=== PATIENT | female | born 1965 | race American Indian/Alaskan Native ===

== ENCOUNTER 2020-07-22 21:27 | Emergency (ER) | payer SELFPAY | END 2020-07-23 00:06 | disposition left against medical advice (07) | LOC: ED 21:27 | DX: Z00.8 Encounter for other general examination (principal); Z53.21 Procedure and treatment not carried out due to patient leaving prior to being seen by health care provider ==

== ENCOUNTER 2021-01-19 03:26 | Inpatient (IN) | payer OTHER, SELFPAY ==
[2021-01-19] MEDS ORDERED: MORPHINE 2 MG/1 ML INJ ONE (03:32)
[2021-01-19] MEDS ORDERED: HEPARIN 1,000 UNIT/1 ML VIAL IV ONE (03:34)
[2021-01-19] MEDS ORDERED: CLOPIDOGREL 300 MG TAB PO ONE (03:34)
--- NOTE | 2021-01-19 03:34 | Emergency Department Report ---
ED Chest Pain HPI - General Chief Complaint: Chest Pain Stated Complaint: POSS STEMI PUI?: No Time Seen by Provider: 01/19/21 03:29 Source: patient, EMS Mode of arrival: Stretcher Limitations: No Limitations - History of Present Illness Initial Comments: Patient is a 55-year-old female who presents emergency room with complaints of chest pain. Patient is chest pain started 2 days ago. Patient states became extreme this evening. Patient states approximately 30 minutes prior to arrival she developed severe chest pain, diaphoresis, nausea and vomiting and shortness of breath. Patient states the chest pain is better with rest and worse with exertion. Patient denies fever and chills. Patient denies recent travel. Patient denies recent international travel. Patient denies exposure to the novel coronavirus. Patient denies sick contacts. Patient denies fever and chills. Patient denies cough. Patient denies diarr hea. Patient denies coming in contact with anybody with symptoms of the novel coronavirus. Patient brought in by EMS. EMS initiated code STEMI prior to arrival. Patient was given aspirin and nitro by EMS. Patient is also on 4 L of oxygen. EKG was transmitted to us. Report received from EMS prior to arrival at 0 315. Code STEMI team activated immediately as reviewed in the transmitted EKG by EMS.. Complaint: chest pain - Related Data Allergies Allergy/AdvReac Type Severity Reaction Status Date / Time No Known Allergies Allergy Unverified 01/19/21 03:33 Heart Score - HEART Score History: Highly suspicious EKG: Significant ST-depression Age: 45-65 Risk factors: No known risk factors Troponin: < normal limit HEART Score: 5 - EKG Read Time Time EKG Completed: 03:28 EKG Read Time: 03:29 ED Review of Systems ROS: Stated complaint: POSS STEMI Other details as noted in HPI Constitutional: diaphoresis. denies: chills, fever Eyes: denies: eye pain, eye discharge, vision change ENT: denies: ear pain, throat pain Respiratory: shortness of breath. denies: cough, wheezing Cardiovascular: as per HPI, chest pain. denies: palpitations Endocrine: no symptoms reported Gastrointestinal: nausea, vomiting. denies: abdominal pain, diarrhea Genitourinary: denies: urgency, dysuria, discharge Musculoskeletal: denies: back pain, joint swelling, arthralgia Skin: denies: rash, lesions Neurological: denies: headache, weakness, paresthesias Psychiatric: denies: anxiety, depression Hematological/Lymphatic: denies: easy bleeding, easy bruising ED Past Medical Hx - Past Medical History Previous Medical History?: Yes Hx Hypertension: Yes - Surgical History Past Surgical History?: No - Family History Family history: no significant - Social History Smoking Status: Never Smoker Substance Use Type: None ED Physical Exam - General Limitations: No Limitations General appearance: alert, in no apparent distress - Head Head exam: Present: atraumatic, normocephalic - Eye Eye exam: Present: normal appearance - ENT ENT exam: Present: mucous membranes moist - Neck Neck exam: Present: normal inspection - Respiratory Respiratory exam: Present: normal lung sounds bilaterally. Absent: respiratory distress - Cardiovascular Cardiovascular Exam: Present: regular rate, normal rhythm. Absent: systolic murmur, diastolic murmur, rubs, gallop - GI/Abdominal GI/Abdominal exam: Present: soft, normal bowel sounds - Extremities Exam Extremities exam: Present: normal inspection - Back Exam Back exam: Present: normal inspection - Neurological Exam Neurological exam: Present: alert, oriented X3 - Psychiatric Psychiatric exam: Present: normal affect, normal mood - Skin Skin exam: Present: warm, dry, intact, normal color. Absent: rash ED Course Vital Signs 01/19/21 01/19/21 03:29 04:15 Temperature 97.8 F 98 F Pulse Rate 84 86 Respiratory 18 18 Rate Blood Pressure 136/97 134/80 [Left] O2 Sat by Pulse 100 98 Oximetry - Reevaluation(s) Reevaluation #1: Patient states her pain is better. Patient's nausea has resolved. 01/19/21 03:35 Reevaluation #2: Patient being transported to the [facility]. [employer] Work at bedside. 01/19/21 03:59 - Consultations Consultation #1: Dr. Edwards consulted and agrees that this is a STEMI 01/19/21 03:18 Consultation #2: Hospitalist consulted for admission. Hospitalist to admit patient. 01/19/21 04:00 PIEDAD score - Peidad Score Age > 65: (0) No Aspirin use within the Past 7 Days: (0) No 3 or more CAD Risk Factors: (0) No 2 or more Angina events in past 24 hrs: (0) No Known CAD with more than 50% Stenosis: (0) No Elevated Cardiac Markers: (0) No ST Deviation Greater than 0.5mm: (0) No PIEDAD Score: 0 ED Medical Decision Making - Lab Data Result diagrams: 01/19/21 03:40 01/19/21 03:40 - EKG Data -: EKG Interpreted by Me EKG shows normal: sinus rhythm, axis, intervals, QRS complexes Rate: normal - EKG Data Interpretation: acute GA - Radiology Data Radiology results: image reviewed interpreted by me: Chest x-ray: No pneumonia, no pneumothorax, no foreign body, no osseous findings, no acute findings - Medical Decision Making Patient is a 55-year-old female presents emergency room for chest pain, shortness of breath and diaphoresis. Patient was brought in by EMS and a code STEMI was initiated prior to arrival immediately after EKG was received from EMS. EMS EKG showed a STEMI. EMS gave the patient aspirin. Patient is on 4 L of oxygen by EMS. Cardiology consulted immediately as well. Patient was given a heparin bolus and placed on a heparin drip, Plavix, oxygen therapy, nitro, morphine and Zofran. Patient began to vomit shortly after receiving the Plavix. Patient was then given Zofran 8 mg. Patient given 2 mg of morphine and then the patient was given nitro and another 2 mg of morphine to control pain. Kim goveant was transported to the [facility] with the manager clinical for his evaluation and treatment by them. The labs came back shortly after and the labs show hypokalemia and elevated troponin and hyperlipidemia. Patient admitted to the hospital service for further evaluation treatment. Patient was admitted to the ICU. Critical care time documented due to the multiple reassessments, prolonged time at the bedside, interpretation of diagnostics and labs And discussion with consultants,. - Differential Diagnosis STEMI, chest pain, shortness of breath, diaphoresis Critical Care Time: Yes Critical care time in (mins) excluding proc time.: 35 Critical care attestation.: If time is entered above; I have spent that time in minutes in the direct care of this critically ill patient, excluding procedure time. Critical Care Time: 35 minutes ED Disposition Clinical Impression: Shortness of breath, Elevated troponin I level, Hypokalemia STEMI (ST elevation myocardial infarction) Qualifiers: Involved coronary artery: unspecified coronary artery Qualified Code(s): I21.3 - ST elevation (STEMI) myocardial infarction of unspecified site Chest pain Qualifiers: Chest pain type: unspecified Qualified Code(s): R07.9 - Chest pain, unspecified Disposition: 09 OP ADMIT IP TO THIS HOSP Is pt being admited?: Yes Does the pt Need Aspirin: No Condition: Critical Time of Disposition: 04:00
[2021-01-19] MEDS ORDERED: ONDANSETRON 4 MG/2 ML INJ IV ONE (03:35)
[2021-01-19] MEDS ORDERED: MORPHINE 2 MG/1 ML INJ IV ONE (03:36)
[2021-01-19] MEDS ORDERED: MIDAZOLAM 2 MG/2 ML INJ ONE (03:57)
[2021-01-19] MEDS ORDERED: HEPARIN 10,000 UNITS/10 ML VIAL ONE ×2 (03:57→09:12)
[2021-01-19] MEDS ORDERED: HEPARIN/NS 5000 UNIT/500ML 1,000 ML IR ONE (03:57)
[2021-01-19] MEDS ORDERED: fentaNYL 100 MCG/2 ML INJ ONE (03:58)
[2021-01-19] MEDS ORDERED: VERAPAMIL 5 MG/2 ML INJ ONE (03:58)
[2021-01-19] MEDS ORDERED: SODIUM CHLORIDE 0.9% 1000 ML 1,000 ML ONE (03:58)
[2021-01-19] MEDS ORDERED: NITROGLYCERIN SYRINGE 3 ML ONE (03:58)
[2021-01-19] MEDS ORDERED: LIDOCAINE (2%) 20 MG/1 ML VIAL 20 ML MDV INFILTRATI ONE (03:58)
[2021-01-19 03:59] LABS: Hematocrit 37.9 % (30.3-42.9); Mean Corpuscular HGB Conc 34 % (30-34); Mean Corpuscular Volume 91 fl (79-97); Platelet Count 281 K/mm3 (140-440); Red Blood Count 4.16 M/mm3 (3.65-5.03); Red Cell Distribution Width 13.2 % (13.2-15.2)
[2021-01-19] MEDS ORDERED: HEPARIN 10,000 UNITS/10 ML VIAL IV ONE (04:00)
[2021-01-19] MEDS ORDERED: HEPARIN/ 0.45% NACL DRIP 25,000 UNIT/500 ML BAG IV SCH ×2 (04:00→10:00)
[2021-01-19 04:10] LABS: INR 0.86 (0.87-1.13)
[2021-01-19 04:11] LABS: Partial Thromboplastin Time 30.9 Sec. (24.2-36.6)
[2021-01-19] MEDS ORDERED: SODIUM CHLORIDE 0.9% 50 ML ONE (04:16)
[2021-01-19 04:17] LABS: Creatine Kinase MB 4.7 ng/mL (0.0-4.0)
[2021-01-19] MEDS ORDERED: SODIUM CHLORIDE 0.9% 100 ML ONE (04:18)
[2021-01-19 04:19] LABS: Blood Urea Nitrogen 14 mg/dL (7-17); Calcium 9.7 mg/dL (8.4-10.2); Hemolysis Index 15
[2021-01-19 04:20] LABS: BUN/Creatinine Ratio 28
[2021-01-19] MEDS ORDERED: NITROGLYCERIN 0.4 MG TAB SUBL SL PRN (04:23)
[2021-01-19] MEDS ORDERED: ACETAMINOPHEN 325 MG TAB PO PRN (04:23)
[2021-01-19] MEDS ORDERED: traMADol 50 MG TAB PO PRN (04:23)
[2021-01-19] MEDS ORDERED: ONDANSETRON 4 MG/2 ML INJ IV PRN ×2 (04:23→17:52)
[2021-01-19] MEDS ORDERED: MORPHINE 2 MG/1 ML INJ IV PRN (04:23)
[2021-01-19] MEDS ORDERED: MAGNESIUM HYDROXIDE (MOM) ORAL LIQD UDC PO PRN (04:23)
[2021-01-19] MEDS: BIVALIRUDIN 250 MG INJ IV ONE ×4 (04:27→05:30)
[2021-01-19 04:31] LABS: LDL Cholesterol,Direct 223 mg/dL (50-130)
--- NOTE | 2021-01-19 04:36 | History and Physical Report ---
History of Present Illness Date of examination: 01/19/21 Date of admission: 01/19/2021 Chief complaint: Chest Pain History of present illness: 55-year-old -[place]ish female with known history of hypertension presents to the emergency room today complaining of chest pain. Patient has been having chest pain over the past 24 to 48 hours. Chest pain became worse earlier this evening and she has been having associated nausea and vomiting, shortness of breath and diaphoresis. Chest pain is worse upon exertion and gets better upon resting. She denies any fever or chills, no headache or dizziness. There is no no relieving or exacerbating factor. Patient denies any sick contacts and no recent travel. En-route to the hospital patient was given aspirin and nitro by EMS and started on oxygen by nasal cannula. Work-up reveals elevated troponin of 0.060, LDL of 223 with total cholesterol 302. Patient was hypokalemic with potassium of 2.8. EKG was concerning for STEMI. Patient was subsequently transferred to the [facility]. Preliminary report from [facility] indicates a proximal LAD lesion. Primary PCI of the LAD done. She was noted to have triple-vessel disease which will be evaluated later. Patient will be admitted into the intensive care unit. Past History Past Medical History: hypertension Past Surgical History: No surgical history Social history: no significant social history Family history: no significant family history Medications and Allergies Allergies Allergy/AdvReac Type Severity Reaction Status Date / Time No Known Allergies Allergy Unverified 01/19/21 03:33 Home Medications Medication Instructions Recorded Confirmed Last Taken Type No Known Home Medications [No 01/19/21 01/19/21 Unknown History Reported Home Medications] Active Meds: Active Medications Acetaminophen (Acetaminophen 325 Mg Tab) 650 mg PO Q6H PRN PRN Reason: Pain, Mild (1-3) Aspirin (Aspirin Ec 325 Mg Tab) 325 mg PO QDAY RANDELL Heparin Sodium/Sodium Chloride (Heparin/ 0.45% Nacl-25,000 Unit/500 Ml) 25,000 unit in 500 mls @ 20 mls/hr IV TITRATE RANDELL; Protocol Magnesium Hydroxide (Magnesium Hydroxide (Mom) Oral Liqd Udc) 30 ml PO Q4H PRN PRN Reason: Constipation Morphine Sulfate (Morphine 4 Mg/1 Ml Inj) 2 mg IV Q5MIN PRN PRN Reason: Chest Pain Nitroglycerin (Nitroglycerin 0.4 Mg Tab Subl) 0.4 mg SL Q5M PRN PRN Reason: Chest Pain Ondansetron HCl (Ondansetron 4 Mg/2 Ml Inj) 4 mg IV Q8H PRN PRN Reason: Nausea And Vomiting Sodium Chloride (Sodium Chloride 0.9% 10 Ml Flush Syringe) 10 ml IV BID RANDELL Sodium Chloride (Sodium Chloride 0.9% 10 Ml Flush Syringe) 10 ml IV PRN PRN PRN Reason: LINE FLUSH Sodium Chloride (Sodium Chloride 0.9% 10 Ml Flush Syringe) 10 ml IV PRN PRN PRN Reason: LINE FLUSH Tramadol HCl (Tramadol 50 Mg Tab) 50 mg PO Q6H PRN PRN Reason: Pain, Moderate (4-6) Review of Systems Constitutional: no fever, no chills Ears, nose, mouth and throat: no nasal congestion, no sore throat Cardiovascular: chest pain, no palpitations Respiratory: shortness of breath, no cough Gastrointestinal: nausea, vomiting, no abdominal pain, no diarrhea, no constipation Genitourinary Female: no pelvic pain, no flank pain, no dysuria Musculoskeletal: no neck pain, no low back pain Integumentary: no rash, no pruritis Neurological: no headaches, no confusion Psychiatric: no anxiety, no depression Endocrine: no polyphagia, no polydipsia, no polyuria, no nocturia Exam - Constitutional Vitals: Temp Pulse Resp BP Pulse Ox 97.8 F 84 18 136/97 100 01/19/21 03:29 01/19/21 03:29 01/19/21 03:29 01/19/21 03:29 01/19/21 03:29 General appearance: Present: no acute distress, well-nourished - EENT Eyes: Present: PERRL, EOM intact. Absent: scleral icterus ENT: hearing intact, clear oral mucosa, dentition normal - Neck Neck: Present: supple, normal ROM - Respiratory Respiratory effort: normal Respiratory: bilateral: CTA - Cardiovascular Rhythm: regular Heart Sounds: Present: S1 & S2. Absent: gallop, systolic murmur, diastolic murmur, rub, click - Extremities Extremities: no ischemia, pulses intact, pulses symmetrical, No edema, normal temperature, normal color, Full ROM Peripheral Pulses: within normal limits - Abdominal General gastrointestinal: Present: soft, non-tender, non-distended, normal bowel sounds. Absent: mass - Integumentary Integumentary: Present: clear, warm, dry, normal turgor. Absent: rash - Musculoskeletal Musculoskeletal: strength equal bilaterally - Psychiatric Psychiatric: appropriate mood/affect, intact judgment & insight, memory intact, cooperative - Neurologic Neurologic: CNII-XII intact, no focal deficits, moves all extremities HEART Score - HEART Score History: Highly suspicious EKG: Significant ST-depression Age: 45-65 Risk factors: 1-2 risk factors Troponin: Troponin T 0.060 ng/mL (0.00-0.029) H 01/19/21 03:40 Troponin: < normal limit HEART Score: 6 Results - Labs CBC & Chem 7: 01/19/21 08:30 01/19/21 08:30 Labs: Abnormal lab results 01/19/21 01/19/21 Range/Units 03:40 03:40 INR 0.86 L (0.87-1.13) Potassium 2.8 L* (3.6-5.0) mmol/L Creatinine 0.5 L (0.6-1.2) mg/dL Glucose 161 H (65-100) mg/dL Total Creatine Kinase 147 H (30-135) units/L CK-MB (CK-2) 4.7 H (0.0-4.0) ng/mL Troponin T 0.060 H (0.00-0.029) ng/mL Cholesterol 302 H (50-199) mg/dL LDL Cholesterol Direct 223 H (50-130) mg/dL Assessment and Plan - Patient Problems (1) STEMI (ST elevation myocardial infarction) Current Visit: No Status: Acute Qualifiers: Involved coronary artery: unspecified coronary artery Qualified Code(s): I21.3 - ST elevation (STEMI) myocardial infarction of unspecified site Plan to address problem: Patient has lesion in the proximal LAD. Will be undergoing stent placement. Patient will be commenced on anticoagulation and aspirin. (2) Hypertension Current Visit: No Status: Acute Plan to address problem: We will resume routine home medications and monitor vital signs closely. (3) Hypokalemia Current Visit: Yes Status: Acute Plan to address problem: Potassium will be repleted. Will monitor chemistry. (4) DVT prophylaxis Current Visit: No Status: Acute Plan to address problem: Patient currently on anticoagulation. (5) Full code status Current Visit: No Status: Acute Plan to address problem: Patient is a full code.
[2021-01-19 04:49] LABS: HDL Cholesterol 58 mg/dL (40-59)
[2021-01-19] MEDS ORDERED: LIDOCAINE PF 100 MG/5 ML (CARDIAC SYRINGE) IV ONE (04:49)
[2021-01-19] MEDS ORDERED: EPINEPHrine 1 MG/10 ML SYRINGE ONE (04:49)
[2021-01-19] MEDS ORDERED: ATROPINE 0.1% (1 MG/10 ML) CARDIAC SYRINGE ONE (04:49)
[2021-01-19] MEDS ORDERED: PHENYLEPHRINE/NS 1,000 MCG/10 ML SYRINGE (OR USE) IV ONE (04:50)
[2021-01-19] MEDS ORDERED: TIROFIBAN/NS 12,500 MCG/250 ML BAG IV ONE (04:54)
[2021-01-19 04:55] LABS: Total Cells Counted 100
[2021-01-19 04:56] LABS: Anisocytosis 1+; Platelet Estimate Consistent w Auto
[2021-01-19] MEDS ORDERED: FUROSEMIDE 40 MG/4 ML INJ ONE (05:18)
[2021-01-19] MEDS ORDERED: FUROSEMIDE 40 MG/4 ML INJ IV ONE (05:57)
[2021-01-19] MEDS ORDERED: ONDANSETRON 4 MG/2 ML INJ ONE (06:07)
--- NOTE | 2021-01-19 06:31 | XRay Report ---
CHEST 1 VIEW, 01/19/2021 3:49 AM CLINICAL INFORMATION/INDICATION: Chest pain COMPARISON: None. FINDINGS: SUPPORT DEVICES: None. HEART: The cardiac silhouette is normal in size. LUNGS/PLEURA: The lungs are clear of focal airspace disease or significant pleural effusion. ADDITIONAL FINDINGS: No additional acute findings. IMPRESSION: 1. No evidence of acute cardiopulmonary process. Signer Name: Amanda Moreno MD Signed: 01/19/2021 6:26 AM Workstation Name: [id number]
[2021-01-19] MEDS ORDERED: LISINOPRIL 20 MG TAB PO SCH (06:47)
[2021-01-19] MEDS ORDERED: POTASSIUM CHLORIDE 10 MEQ 10 MEQ/100 ML BAG IV ONE ×2 (07:00→07:37)
--- NOTE | 2021-01-19 08:10 | Cardiac Catherization Report ---
DATE OF SERVICE: 01/19/2021 CARDIAC CATHETERIZATION REPORT CLINICAL INFORMATION: The patient is a pleasant 55-year-old -[place] female, brought in to the ED at [facility] with a history of chest pain. STEMI team is activated based on the EKG and her chest pains. She has a history of hypertension, dyslipidemia. EKG is consistent with anterolateral wall injury. The patient was given aspirin, heparin, also was loaded with Plavix 600 mg in the ED prior to my arrival. Discussed with the patient as well as her , Mr. Werner and risks, benefits and alternatives were extensively discussed and we agreed to pursue for cardiac catheterization on an emergency basis. PROCEDURES PERFORMED: Today: 1. Left heart catheterization. 2. Selective coronary angiogram. 3. LV angiogram. 4. Primary PCI to proximal LAD with the deployment of 3.5 x 30 mm Resolute Beni SARWAT with excellent results. 5. Intracoronary nitroglycerin. DESCRIPTION OF PROCEDURE: The right wrist area was cleaned and draped in a sterile fashion. Lidocaine 2% was used for local anesthesia. The right radial artery was accessed with a micropuncture needle and a 6 [place]alan slender sheath was inserted. Selective angiograms of the left and right coronary systems were obtained with a 5 [place] diagnostic catheter. LV angiogram was obtained in VICENTE projection with a 6 [place] pigtail catheter. After reviewing the diagnostic coronary angiogram, we agreed to pursue for PCI to LAD. HEMODYNAMICS: 1. Aortic pressure 143/92 mmHg. 2. LV systolic pressure 143 mmHg. 3. LVEDP -is 40 mm Hg. CORONARY ANATOMY: It is a codominant system. Left main coronary artery is a large caliber vessel with a funnel shaped narrowing in the distal part, maybe approximately has a 30% stenosis noted. Ostial LAD has a 30% stenosis noted. Proximal LAD has 90% stenosis noted with severe calcification. Principal diagonal branch is a large caliber vessel, diagonal branch has approximately 70% stenosis noted in the proximal segment. Left circumflex coronary artery is a medium caliber vessel, ostium has 30% stenosis, proximal segment has 70% stenosis and the mid segment has a 70% stenosis noted. OM1 is a large caliber vessel, ostium has approximately 40%-50% stenosis noted. OM2 is a small caliber vessel with diffuse disease. Left PDA is a small caliber vessel with diffuse disease. Right coronary artery is a medium caliber vessel, proximal segment has 70% stenosis. Right PDA is a small caliber vessel with diffuse disease. LV ANGIOGRAM: LV angiogram was obtained in VICENTE projection. Left ventricular ejection fraction is 30%. LVEDP is 40 mmHg. Primary PCI to proximal LAD. The patient was given Angiomax during the PCI. Also given 2 bolus of Aggrastat IV. The left main coronary artery was selectively engaged with a 6 Guatemalan XB LAD 3.5 guiding catheter. The critical lesion in the proximal LAD was successfully crossed with 0.014 BMW wire. The proximal and mid LAD was predilated with 2.0 x 10 mm balloon. Noted to have severe calcification. After that, I used 3.0 x 10 mm AngioSculpt balloon. Subsequently, the proximal LAD was stented with 3.5 x 30 mm Resolute Beni SARWAT. Jerome wire was used and subsequently the stent was postdilated with a 3.75 x 8 mm noncompliant balloon. Intracoronary nitroglycerin was given. Post-intervention angiograms demonstrated residual stenosis 0% in stented segment, PIEDAD 3 flow noted in the LAD system. The patient tolerated the procedure very well. Transferred in hemodynamically stable state to the ICU for further management. CONCLUSIONS: The above study showed severe multivessel manzanita CAD with critical disease/culprit lesion involving the proximal LAD, that area was stented with 3.5 x 30 mm Resolute Beni SARWAT, establishing a PIEDAD 3 flow in the LAD system. Ischemic cardiomyopathy, LVEF 30%. LVEDP is 40 mmHg. RECOMMENDATIONS: 1. Continue Angiomax for 2 hours after the post-PCI. 2. The patient is going to be started on Brilinta therapy starting this evening. Brilinta 90 mg p.o. b.i.d. 3. Aspirin 81 mg p.o. every day. 4. She will be started on Lipitor 80 mg p.o. every day. 5. Toprol-XL 50 mg p.o. at bedtime. 6. KAYE inhibitor therapy, discussed with ICU/hospitalist team, to start at appropriate time after watching the blood pressure, etc. DISCUSSION: The patient noted to have severe multivessel manzanita CAD, presented with anterior wall injury involving the proximal LAD lesion, which is 90% stenosed along with significant calcification, where I have to use AngioSculpt balloon before the stent placement. I believe a thrombus along with calcification made it difficult to access that area initially. However, that area is successfully stented with a 3.5 x 30 mm Resolute Wilberforce SARWAT as described above. The patient will need to be further evaluated for distal left main disease as well as left circumflex disease as well as RCA disease, also disease in the diagonal branch, explained to the patient as well as her , Mr. Werner. Electively, she needs to have a repeat heart cath and IVUS those areas before making a final decision for multivessel stenting versus a CABG, etc. These options and the thought process were extensively discussed with the patient as well as her , Mr. Werner. TID: [id number] RECEIPT: [id number] BRITTANIE/SERJIO/VIKA BENÍTEZ
[2021-01-19] MEDS: ASPIRIN 81 MG TAB CHEW PO SCH (09:00)
[2021-01-19] MEDS: METOPROLOL SUCCINATE XL 50 MG TAB PO SCH (09:00)
[2021-01-19 09:01] LABS: Basophils % (Auto) 0.2 % (0.0-1.8); Hematocrit 40.2 % (30.3-42.9); Hemoglobin 13.9 gm/dl (10.1-14.3); Lymphocytes # (Auto) 1.1 K/mm3 (1.2-5.4); Mean Corpuscular HGB Conc 35 % (30-34); Mean Corpuscular Volume 90 fl (79-97); Monocytes # (Auto) 0.7 K/mm3 (0.0-0.8); Monocytes % (Auto) 5.3 % (0.0-7.3); Platelet Count 288 K/mm3 (140-440); Red Blood Count 4.47 M/mm3 (3.65-5.03); Red Cell Distribution Width 13.7 % (13.2-15.2)
[2021-01-19] MEDS: TICAGRELOR 90 MG TAB PO SCH ×2 (09:07→22:58)
[2021-01-19] MEDS ORDERED: NITROGLYCERIN 0.4 MG TAB SUBL SL ONE (09:12)
[2021-01-19] MEDS ORDERED: HEPARIN/ 0.45% NACL - 25,000 UNITS/500 ML DRIP ONE (09:12)
[2021-01-19] MEDS ORDERED: CLOPIDOGREL 300 MG TAB ONE (09:12)
[2021-01-19 09:14] LABS: Blood Urea Nitrogen 12 mg/dL (7-17); Calcium 9.4 mg/dL (8.4-10.2); Hemolysis Index 13
[2021-01-19 09:23] LABS: BUN/Creatinine Ratio 24
[2021-01-19 09:40] LABS: Creatine Kinase MB 775.9 ng/mL (0.0-4.0)
[2021-01-19] MEDS ORDERED: METOPROLOL SUCCINATE XL 50 MG TAB PO SCH (10:00)
[2021-01-19] MEDS: POTASSIUM CHLORIDE ER 20 MEQ TAB PO SCH ×2 (10:52→16:12)
[2021-01-19 11:36] LABS: INR 1.31 (0.87-1.13)
[2021-01-19 11:57] LABS: Partial Thromboplastin Time 99.7 Sec. (24.2-36.6)
--- NOTE | 2021-01-19 12:23 | Consultation ---
History of Present Illness Consult date: 01/19/21 Requesting physician: MINH LANDRY Consult reason: chest pain, other History of present illness: Patient is a 55-year-old who presented to the hospital with chest pain. Noted to have acute anterior wall ST elevation MO. She was taken to the Data Abstractor and had primary PCI of the LAD. She also has noted to have triple-vessel disease which will be evaluated later on. Currently patient reports she is doing much better. No chest pain or shortness of breath. Past History Past Medical History: hypertension Past Surgical History: No surgical history Social history: no significant social history Family history: no significant family history Medications and Allergies Allergies Allergy/AdvReac Type Severity Reaction Status Date / Time No Known Allergies Allergy Unverified 01/19/21 03:33 Active Meds: Active Medications Acetaminophen (Acetaminophen 325 Mg Tab) 650 mg PO Q6H PRN PRN Reason: Pain, Mild (1-3) Aspirin (Aspirin 81 Mg Tab Chew) 81 mg PO QDAY [facility] Last Admin: 01/19/21 09:00 Dose: 81 mg Documented by: Atorvastatin Calcium (Atorvastatin 40 Mg Tab) 80 mg PO QHS [facility] Heparin Sodium/Sodium Chloride (Heparin/ 0.45% Nacl-25,000 Unit/500 Ml) 25,000 unit in 500 mls @ 21 mls/hr IV TITR [facility]; Protocol Lisinopril (Lisinopril 20 Mg Tab) 20 mg PO QDAY [facility] Last Admin: 01/19/21 07:24 Dose: 20 mg Documented by: Magnesium Hydroxide (Magnesium Hydroxide (Mom) Oral Liqd Udc) 30 ml PO Q4H PRN PRN Reason: Constipation Metoprolol Succinate (Metoprolol Succinate Xl 50 Mg Tab) 50 mg PO QDAY [facility] Last Admin: 01/19/21 09:00 Dose: 50 mg Documented by: Morphine Sulfate (Morphine 2 Mg/1 Ml Inj) 2 mg IV Q5MIN PRN PRN Reason: Chest Pain Nitroglycerin (Nitroglycerin 0.4 Mg Tab Subl) 0.4 mg SL Q5M PRN PRN Reason: Chest Pain Ondansetron HCl (Ondansetron 4 Mg/2 Ml Inj) 4 mg IV Q8H PRN PRN Reason: Nausea And Vomiting Last Admin: 01/19/21 08:54 Dose: 4 mg Documented by: Potassium Chloride (Potassium Chloride Er 20 Meq Tab) 40 meq PO Q4H [facility] Stop: 01/19/21 14:01 Sodium Chloride (Sodium Chloride 0.9% 10 Ml Flush Syringe) 10 ml IV BID [facility] Last Admin: 01/19/21 09:01 Dose: 10 ml Documented by: Sodium Chloride (Sodium Chloride 0.9% 10 Ml Flush Syringe) 10 ml IV PRN PRN PRN Reason: LINE FLUSH Ticagrelor (Ticagrelor 90 Mg Tab) 90 mg PO BID [facility] Last Admin: 01/19/21 09:07 Dose: 90 mg Documented by: Tramadol HCl (Tramadol 50 Mg Tab) 50 mg PO Q6H PRN PRN Reason: Pain, Moderate (4-6) Review of Systems All systems: negative (As mentioned in the H&P) Physical Examination Vital Signs Temp Pulse Resp BP Pulse Ox 97.8 F 84 18 136/97 98 01/19/21 03:29 01/19/21 03:29 01/19/21 03:29 01/19/21 03:29 01/19/21 03:29 Narrative exam: Moderately obese General appearance: no acute distress HEENT: Positive: Normocephaly Neck: Positive: trachea midline Cardiac: Positive: Reg Rate and Rhythm Lungs: Positive: clear to auscultation Neuro: Positive: Grossly Intact Abdomen: Positive: Unremarkable Extremities: Present: normal Results 01/19/21 08:30 01/19/21 08:30 Cardiac Enzymes 01/19/21 01/19/21 Range/Units 03:40 08:30 CK-MB (CK-2) 4.7 H 775.9 H (0.0-4.0) ng/mL Coagulation 01/19/21 01/19/21 Range/Units 03:40 10:48 PT 12.3 16.9 H (12.2-14.9) Sec. INR 0.86 L 1.31 H (0.87-1.13) APTT 30.9 99.7 H* (24.2-36.6) Sec. Lipids 01/19/21 Range/Units 03:40 Triglycerides 148 (2-149) mg/dL Cholesterol 302 H (50-199) mg/dL HDL Cholesterol 58 (40-59) mg/dL Cholesterol/HDL Ratio 5.20 % CBC 01/19/21 01/19/21 Range/Units 03:40 08:30 WBC 10.7 12.4 H (4.5-11.0) K/mm3 RBC 4.16 4.47 (3.65-5.03) M/mm3 Hgb 13.0 13.9 (10.1-14.3) gm/dl Hct 37.9 40.2 (30.3-42.9) % Plt Count 281 288 (140-440) K/mm3 Lymph # (Auto) Tower Erector Helper 1.1 L [place] # (Auto) 0.7 (0.0-0.8) K/mm3 Eos # (Auto) 0.0 (0.0-0.4) K/mm3 Baso # (Auto) 0.0 (0.0-0.1) K/mm3 Comprehensive Metabolic Panel 01/19/21 01/19/21 Range/Units 03:40 08:30 Sodium 143 143 (137-145) mmol/L Potassium 2.8 L* 3.2 L (3.6-5.0) mmol/L Chloride 104.8 102.6 (98-107) mmol/L Carbon Dioxide 22 25 (22-30) mmol/L BUN 14 12 (7-17) mg/dL Creatinine 0.5 L 0.5 L (0.6-1.2) mg/dL Glucose 161 H 157 H (65-100) mg/dL Calcium 9.7 9.4 (8.4-10.2) mg/dL EKG interpretations - Telemetry EKG Rhythm: Sinus Rhythm (With anteroseptal Q waves) Assessment and Plan Impression 1. Acute anterior wall ST elevation MO status post primary PCI 2. Coronary artery disease with distal left main RCA circumflex and diagonal disease 3. Hypertension 4. Hyperlipidemia Plan 1. Dual antiplatelet therapy for 1 year peripherally more 2. Routine pharmacotherapy post PCI/post MO 3. 2D echo 4. Cardiac cath films will be reviewed regarding her residual coronary artery disease and possible CT surgery eval
--- NOTE | 2021-01-19 14:40 | Consultation ---
History of Present Illness Consult date: 01/19/21 Requesting physician: MINH LANDRY Reason for consult: other (STEMI) History of present illness: PULMONARY/CCM CONSULT NOTE (Full dictation # [id number]) Please see dictated notes for full details Past History Past Medical History: hypertension Past Surgical History: No surgical history Social history: no significant social history Family history: no significant family history Medications and Allergies Allergies Allergy/AdvReac Type Severity Reaction Status Date / Time No Known Allergies Allergy Unverified 01/19/21 03:33 Active Meds: Active Medications Acetaminophen (Acetaminophen 325 Mg Tab) 650 mg PO Q6H PRN PRN Reason: Pain, Mild (1-3) Aspirin (Aspirin 81 Mg Tab Chew) 81 mg PO QDAY [facility] Last Admin: 01/19/21 09:00 Dose: 81 mg Documented by: Atorvastatin Calcium (Atorvastatin 40 Mg Tab) 80 mg PO QHS [facility] Heparin Sodium/Sodium Chloride (Heparin/ 0.45% Nacl-25,000 Unit/500 Ml) 25,000 unit in 500 mls @ 21 mls/hr IV TITR [facility]; Protocol Last Admin: 01/19/21 14:27 Dose: 1,050 units/hr, 21 mls/hr Documented by: Lisinopril (Lisinopril 20 Mg Tab) 20 mg PO QDAY [facility] Magnesium Hydroxide (Magnesium Hydroxide (Mom) Oral Liqd Udc) 30 ml PO Q4H PRN PRN Reason: Constipation Metoprolol Succinate (Metoprolol Succinate Xl 50 Mg Tab) 50 mg PO QDAY [facility] Last Admin: 01/19/21 09:00 Dose: 50 mg Documented by: Morphine Sulfate (Morphine 2 Mg/1 Ml Inj) 2 mg IV Q5MIN PRN PRN Reason: Chest Pain Nitroglycerin (Nitroglycerin 0.4 Mg Tab Subl) 0.4 mg SL Q5M PRN PRN Reason: Chest Pain Ondansetron HCl (Ondansetron 4 Mg/2 Ml Inj) 4 mg IV Q8H PRN PRN Reason: Nausea And Vomiting Last Admin: 01/19/21 08:54 Dose: 4 mg Documented by: Sodium Chloride (Sodium Chloride 0.9% 10 Ml Flush Syringe) 10 ml IV BID [facility] Last Admin: 01/19/21 09:01 Dose: 10 ml Documented by: Sodium Chloride (Sodium Chloride 0.9% 10 Ml Flush Syringe) 10 ml IV PRN PRN PRN Reason: LINE FLUSH Ticagrelor (Ticagrelor 90 Mg Tab) 90 mg PO BID [facility] Last Admin: 01/19/21 09:07 Dose: 90 mg Documented by: Tramadol HCl (Tramadol 50 Mg Tab) 50 mg PO Q6H PRN PRN Reason: Pain, Moderate (4-6) Physical Examination Vital signs: Vital Signs Temp Pulse Resp BP Pulse Ox 97.8 F 84 18 136/97 98 01/19/21 03:29 01/19/21 03:29 01/19/21 03:29 01/19/21 03:29 01/19/21 03:29 Results - Laboratory Findings CBC and BMP: 01/19/21 08:30 01/19/21 08:30 PT/INR, D-dimer PT 16.9 Sec. (12.2-14.9) H 01/19/21 10:48 INR 1.31 (0.87-1.13) H 01/19/21 10:48 Abnormal lab findings: Abnormal Labs 01/19/21 01/19/21 01/19/21 03:40 03:40 03:40 WBC MCHC Lymph % (Auto) Lymph # (Auto) Seg Neutrophils % Lymphocytes % (Manual) 45.0 H Seg Neutrophils # PT INR 0.86 L APTT Potassium 2.8 L* Creatinine 0.5 L Glucose 161 H POC Glucose Total Creatine Kinase 147 H CK-MB (CK-2) 4.7 H CK-MB (CK-2) Rel Index Troponin T 0.060 H Cholesterol 302 H LDL Cholesterol Direct 223 H 01/19/21 01/19/21 01/19/21 08:30 08:30 10:48 WBC 12.4 H MCHC 35 H Lymph % (Auto) 9.0 L Lymph # (Auto) 1.1 L Seg Neutrophils % 85.5 H Lymphocytes % (Manual) Seg Neutrophils # 10.6 H PT 16.9 H INR 1.31 H APTT 99.7 H* Potassium 3.2 L Creatinine 0.5 L Glucose 157 H POC Glucose Total Creatine Kinase 5786 H CK-MB (CK-2) 775.9 H CK-MB (CK-2) Rel Index 13.4 H Troponin T 3.560 H* D Cholesterol LDL Cholesterol Direct 01/19/21 12:57 WBC MCHC Lymph % (Auto) Lymph # (Auto) Seg Neutrophils % Lymphocytes % (Manual) Seg Neutrophils # PT INR APTT Potassium Creatinine Glucose POC Glucose 139 H Total Creatine Kinase CK-MB (CK-2) CK-MB (CK-2) Rel Index Troponin T Cholesterol LDL Cholesterol Direct
[2021-01-19] MEDS: POTASSIUM CHLORIDE 10 MEQ 10 MEQ/100 ML BAG IV SCH ×2 (16:10→18:03)
--- NOTE | 2021-01-19 17:48 | Event Note ---
Date: 01/19/[address] elevation [place]. She was taken to the Eyeglass Inspector and had primary PCI of the LAD. She also has noted to have triple-vessel disease which will be evaluated later on. Currently patient reports she is doing much better. No chest pain or shortness of breath.
[2021-01-19] MEDS ORDERED: ALUM-MAG HYDROXIDE-SIMETHICONE 200-200-20MG/5ML ORAL LIQD 30 ML PO PRN (17:49)
[2021-01-19] MEDS ORDERED: FAMOTIDINE 20 MG/2 ML INJ IV STA (17:49)
[2021-01-19] MEDS ORDERED: HYDROmorphone 1 MG/1 ML INJ IV PRN (17:59)
[2021-01-19] MEDS ORDERED: FAMOTIDINE 20 MG/2 ML INJ IV SCH (22:00)
[2021-01-19] MEDS: PANTOPRAZOLE 40 MG INJ IV SCH (22:23)
--- NOTE | 2021-01-19 22:42 | Consultation ---
DATE OF CONSULTATION: 01/19/2021 PULMONARY CRITICAL CARE CONSULTATION CONSULTING PHYSICIAN: Dr. Julián Garcia REASON FOR CONSULTATION: ST elevation MS. CHIEF COMPLAINT AND HISTORY OF PRESENT ILLNESS: The patient is a now 55-year-old obese female with a history of hypertension who presented to the emergency room yesterday complaining of pain. It had been going on for about 24-48 hours, chest pain. It was worse earlier the day of presentation. It was associated with nausea and vomiting, shortness of breath, and diaphoresis, worsened with exertion and better with rest. She denied fevers or chills. She denied any hemoptysis, streaky or otherwise. Denied any chest wall trauma. Workup in the Emergency Room revealed a slightly elevated troponin and EKG was suspicious for ST elevation MS. The route driver salesperson was consulted and she was found to indeed have an acute anterior wall ST elevation MS. She was transferred to the labelling machine operator emergently, had primary PCI of the left anterior descending. She was also noted to have triple vessel disease. Post-procedure, she was brought into the intensive care unit for continued anticoagulation and close observation. When I stopped by to see her, she was resting in bed. She was feeling better, still complaining of nausea, in particular whenever she takes anything down, she feels like she has to throw up. She admits to a history of GERD, was not really taking anything for that, but she states the pain that brought her into the hospital is nonexistent at this point. When asked about a history of tobacco use or abuse, she describes herself as a never smoker. That really is as much of the history of presentation as I have. PAST MEDICAL HISTORY: Hypertension. She is obese. PAST SURGICAL HISTORY: Unknown. MEDICATIONS: She was on at the time I stopped by to see her according to the medication administration record included the following: Tylenol 650 mg p.o. q. 6 hours p.r.n. mild pain or fever, aspirin 81 mg p.o. daily, Lipitor 80 mg p.o. at bedtime, heparin drip was going at 1050 units per hour, Zestril 20 mg p.o. daily p.r.n., milk of magnesia, metoprolol 50 mg p.o. daily extended release p.o., morphine 2 mg IV every 4 hours p.r.n. moderate pain, sublingual nitroglycerin 0.4 mg every 5 minutes p.r.n. chest pain, Zofran 4 mg IV q. 8 hours p.r.n. nausea and vomiting, Brilinta 90 mg p.o. b.i.d. and tramadol 50 mg p.o. q. 6 hours p.r.n. moderate pain. ALLERGIES: No known drug allergies. DIET: Obese lady, denies acute weight loss or gain in the preceding few weeks to months. SOCIAL HISTORY: Lives in the community. Denies alcohol, tobacco or illicit drug use or abuse. FAMILY HISTORY: Otherwise, noncontributory. REVIEW OF SYSTEMS: No loss of consciousness. No new-onset seizures. No new-onset focal weakness. Denies gross hematochezia or melena. Denies gross hematuria or dysuria. Denies hemoptysis. Denies any new-onset leg pain or swelling, either unilaterally or bilaterally. Denied any history of paroxysmal nocturnal dyspnea. Denies any history of orthopnea. She denies heat or cold intolerance. Denies polydipsia, polyuria. Complete 13 system review of systems obtained. Pertinent positives and/or negatives as in body of history above, otherwise they are noncontributory. PHYSICAL EXAMINATION: VITAL SIGNS: At presentation, she was afebrile, temperature 97.8 degrees Fahrenheit, pulse of 84, respiratory rate of 18, blood pressure 136/97, O2 sats 100%, inspired oxygen concentration at that time was not recorded. When I stopped by to see her, her O2 sats were 98% on room air. GENERAL: She is a middle-aged obese female. Normocephalic, atraumatic, talking to me in full sentences without significantly increased respiratory effort at rest. HEENT: Anicteric. No conjunctival erythema. Oropharynx was moist. Mallampati 3 oropharynx. NECK: No gross jugular venous distention, no thyromegaly. Grossly, there were no palpable lymph nodes in the supraclavicular or submandibular lymph node chains. LUNGS: Auscultation of both lung prieto really insignificant. She had good bilateral air movement. No wheezing. HEART: Sounds 1 and 2 are heard. There were regular rate and rhythm at the time of my evaluation without overt rubs or murmurs. ABDOMEN: Soft, full. Mild epigastric tenderness. No palpable hepatosplenomegaly. EXTREMITIES: Without overt digital clubbing or cyanosis. No pedal edema. Pedal pulses are 2+ bilaterally. NEUROLOGIC: Pupils are equal, round, about 4 mm, reactive to light. Extraocular muscle movements are intact. She moves all 4 extremities spontaneously. SKIN: Normal turgor in the areas examined without overt cellulitis or rash. She had a right radial access point, I believe. Please see the wound care nurses' notes for full description of her skin. PSYCHIATRIC: Mood was normal. Affect was appropriate. She seems to have intact judgment and insight. LABORATORY DATA: From my review are as follows: Admission white cell count 10,700, hemoglobin 13.0, hematocrit 37.9, platelet count 281. No band forms on the manual differential. INR was 0.86. Serum sodium 143, potassium was 2.8, chloride 105, bicarbonate 22, BUN 14, creatinine 0.5, glucose was 161. CPK 147. At presentation, troponin was 0.06, peaked so far 3.56. LDL cholesterol was 223. Coronavirus PCR test was negative. No blood cultures. She did have a chest x-ray. I have reviewed the chest x-ray, it is severely rotated to the left, really hypoventilation. No real acute process otherwise. She has done an echocardiogram. Left ventricular ejection fraction 40-45%. RV systolic pressure elevated at 50 mmHg. ASSESSMENT: 1. Acute ST-elevation myocardial infarction. 2. Pulmonary hypertension. 3. Heart failure with reduced ejection fraction. 4. Obesity. 5. History of hypertension. 6. Hypokalemia. 7. Hyperlipidemia. PLAN: She will be continued on the IV heparin therapy. She will also be continued on other antiplatelet therapies as per cardiology. Secondary prevention measures are already ongoing. She is on Lipitor for lipid control. She is on metoprolol for rate and blood pressure control. Oxygen will be offered as necessary to keep sats greater than or equal to about 90%. Aspiration precautions will be maintained. I will go with Pepcid therapy for likely reflux disease and she has been instructed to try and get an outpatient followup for that. Otherwise, her chronic disease medications will be deferred to the attending. The potassium will be replaced per protocol. We will get a magnesium level to see if that is also low and needs replacement. Potassium is up to 3.2 on most recent labs. She is fully anticoagulated. She will be placed on GI prophylaxis. Flu and pneumonia vaccination will be addressed per protocol. Thank you very much for the consult. We will follow along and make further recommendations as picture progresses/becomes clearer. TID: [id number] RECEIPT: [id number] [facility]AT[facility] B[facility]ÍTE[facility]
[2021-01-20 08:08] LABS: Basophils # (Auto) 0.1 K/mm3 (0.0-0.1); Basophils % (Auto) 0.7 % (0.0-1.8); Eosinophils % (Auto) 0.1 % (0.0-4.3); Hematocrit 41.1 % (30.3-42.9); Hemoglobin 14.2 gm/dl (10.1-14.3); Lymphocytes % (Auto) 13.9 % (13.4-35.0); Mean Corpuscular HGB Conc 35 % (30-34); Mean Corpuscular Volume 90 fl (79-97); Monocytes # (Auto) 1.1 K/mm3 (0.0-0.8); Monocytes % (Auto) 7.5 % (0.0-7.3); Platelet Count 266 K/mm3 (140-440); Red Blood Count 4.55 M/mm3 (3.65-5.03); Red Cell Distribution Width 13.8 % (13.2-15.2)
[2021-01-20 08:18] LABS: INR 0.92 (0.87-1.13)
[2021-01-20 08:27] LABS: Blood Urea Nitrogen 18 mg/dL (7-17); Calcium 9.9 mg/dL (8.4-10.2); Hemolysis Index 4
[2021-01-20 08:37] LABS: BUN/Creatinine Ratio 30
[2021-01-20] MEDS: TICAGRELOR 90 MG TAB PO SCH (09:24)
[2021-01-20] MEDS: ASPIRIN 81 MG TAB CHEW PO SCH (09:24)
[2021-01-20] MEDS: METOPROLOL SUCCINATE XL 50 MG TAB PO SCH (09:24)
[2021-01-20] MEDS: LISINOPRIL 20 MG TAB PO SCH (09:25)
[2021-01-20] MEDS: PANTOPRAZOLE 40 MG INJ IV SCH (09:25)
[2021-01-20] MEDS ORDERED: ASPIRIN EC 325 MG TAB PO SCH (10:00)
--- NOTE | 2021-01-20 11:44 | Progress Note ---
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 -Continue cardioprotective regimen Leukocytosis -Trend CBC Obesity -Need to increase in physical activity and dietary changes counseling provided -Nutrition consult Hypertension -Antihypertensive regimen with KAYE inhibitor's and beta-bernie -Titrate as needed -Blood pressure pressure monitoring per protocol -As needed antihypertensive Hyperlipidemia -Statin therapy DVT/GI prophylaxis: SCDs to bilateral lower extremities while in bed, PPI Disposition: Transfer to floor The high probability of a clinically significant, sudden or life threatening deterioration of the [cardio] system(s) required my full and direct attention, intervention and personal management. The aggregate critical care time was [30] minutes. This time is in addition to time spent performing reported procedures but includes the following: [x] Data Review and interpretation [x] Patient assessment and monitoring of vital signs [x] Documentation [x] Medication orders and management History Interval history: This is a 55-year-old female with hypertension who presented to the emergency department on 01/19 with complaints of chest pain for the past 24 to 48 hours associated with nausea/vomiting/shortness of breath and diaphoresis, worsened with exertion and improvement with rest. In route to the hospital patient was given aspirin nitroglycerin by EMS and started on oxygen via nasal cannula. Work-up in the emergency department revealed elevated troponin, LDL and cho lesterol, hypokalemia. ECG was concerning for STEMI and patient was taken to [facility] by cardiology. Cardiac cath revealed proximal LAD lesion and patient received PCI of the LAD with SARWAT placement and was noted to have triple-vessel disease. Patient was admitted to the hospital service with consults to cardiology and critical care. 01/20: No complaints of chest pain, patient had nausea/vomiting overnight but found relief with antiemetic. Cardiology has cleared the patient to be transferred to telemetry. No acute events reported overnight. Her hypokalemia has resolved. Hospitalist Physical - Constitutional Vitals: Temp Pulse Resp BP Pulse Ox 98.1 F 93 H 13 121/68 97 01/20/21 08:42 01/20/21 11:00 01/20/21 11:00 01/20/21 11:00 01/20/21 11:00 General appearance: Present: no acute distress, well-nourished - EENT Eyes: Present: PERRL, EOM intact ENT: hearing intact, clear oral mucosa, dentition normal - Neck Neck: Present: normal ROM - Respiratory Respiratory effort: normal Respiratory: bilateral: CTA - Cardiovascular Rhythm: regular Heart Sounds: Present: S1 & S2. Absent: systolic murmur, diastolic murmur - Extremities Extremities: no ischemia, pulses intact, pulses symmetrical, No edema, normal temperature, normal color, Full ROM Peripheral Pulses: within normal limits - Abdominal General gastrointestinal: soft, non-tender, non-distended, normal bowel sounds - Integumentary Integumentary: Present: clear, warm, dry - Psychiatric Psychiatric: appropriate mood/affect, cooperative - Neurologic Neurologic: CNII-XII intact, no focal deficits, moves all extremities - Allied Health Allied health notes reviewed: nursing, social work HEART Score - HEART Score EKG: Significant ST-depression Age: 45-65 Risk factors: 1-2 risk factors Troponin: Troponin T 3.560 ng/mL (0.00-0.029) H* D 01/19/21 08:30 Troponin: < normal limit Results - Labs CBC & Chem 7: 01/20/21 07:53 01/20/21 07:53 Labs: Laboratory Last Values WBC 14.2 K/mm3 (4.5-11.0) H 01/20/21 07:53 RBC 4.55 M/mm3 (3.65-5.03) 01/20/21 07:53 Hgb 14.2 gm/dl (10.1-14.3) 01/20/21 07:53 Hct 41.1 % (30.3-42.9) 01/20/21 07:53 MCV 90 fl (79-97) 01/20/21 07:53 MCH 31 pg (28-32) 01/20/21 07:53 MCHC 35 % (30-34) H 01/20/21 07:53 RDW 13.8 % (13.2-15.2) 01/20/21 07:53 Plt Count 266 K/mm3 (140-440) 01/20/21 07:53 Lymph % (Auto) 13.9 % (13.4-35.0) 01/20/21 07:53 [place] % (Auto) 7.5 % (0.0-7.3) H 01/20/21 07:53 Eos % (Auto) 0.1 % (0.0-4.3) 01/20/21 07:53 Baso % (Auto) 0.7 % (0.0-1.8) 01/20/21 07:53 Lymph # (Auto) 2.0 K/mm3 (1.2-5.4) 01/20/21 07:53 [place] # (Auto) 1.1 K/mm3 (0.0-0.8) H 01/20/21 07:53 Eos # (Auto) 0.0 K/mm3 (0.0-0.4) 01/20/21 07:53 Baso # (Auto) 0.1 K/mm3 (0.0-0.1) 01/20/21 07:53 Add Manual Diff Complete 01/19/21 03:40 Total Counted 100 01/19/21 03:40 Seg Neutrophils % 77.8 % (40.0-70.0) H 01/20/21 07:53 Seg Neuts % (Manual) 50.0 % (40.0-70.0) 01/19/21 03:40 Lymphocytes % (Manual) 45.0 % (13.4-35.0) H 01/19/21 03:40 Monocytes % (Manual) 4.0 % (0.0-7.3) 01/19/21 03:40 Eosinophils % (Manual) 1.0 % (0.0-4.3) 01/19/21 03:40 Nucleated RBC % Not Reportable 01/19/21 03:40 Seg Neutrophils # 11.1 K/mm3 (1.8-7.7) H 01/20/21 07:53 Seg Neutrophils # Man 5.4 K/mm3 (1.8-7.7) 01/19/21 03:40 Band Neutrophils # 0.0 K/mm3 01/19/21 03:40 Lymphocytes # (Manual) 4.8 K/mm3 (1.2-5.4) 01/19/21 03:40 Abs React Lymphs (Man) 0.0 K/mm3 01/19/21 03:40 Monocytes # (Manual) 0.4 K/mm3 (0.0-0.8) 01/19/21 03:40 Eosinophils # (Manual) 0.1 K/mm3 (0.0-0.4) 01/19/21 03:40 Basophils # (Manual) 0.0 K/mm3 (0.0-0.1) 01/19/21 03:40 Metamyelocytes # 0.0 K/mm3 01/19/21 03:40 Myelocytes # 0.0 K/mm3 01/19/21 03:40 Promyelocytes # 0.0 K/mm3 01/19/21 03:40 Blast Cells # 0.0 K/mm3 01/19/21 03:40 WBC Morphology Not Reportable 01/19/21 03:40 Hypersegmented Neuts Not Reportable 01/19/21 03:40 Hyposegmented Neuts Not Reportable 01/19/21 03:40 Hypogranular Neuts Not Reportable 01/19/21 03:40 Smudge Cells Not Reportable 01/19/21 03:40 Toxic Granulation Not Reportable 01/19/21 03:40 Toxic Vacuolation Not Reportable 01/19/21 03:40 Dohle Bodies Not Reportable 01/19/21 03:40 Pelger-Huet Anomaly Not Reportable 01/19/21 03:40 Gely Rods Not Reportable 01/19/21 03:40 Platelet Estimate Consistent w auto 01/19/21 03:40 Clumped Platelets Not Reportable 01/19/21 03:40 Plt Clumps, EDTA Not Reportable 01/19/21 03:40 Large Platelets Not Reportable 01/19/21 03:40 Giant Platelets Not Reportable 01/19/21 03:40 Platelet Satelliting Not Reportable 01/19/21 03:40 Plt Morphology Comment Not Reportable 01/19/21 03:40 RBC Morphology Not Reportable 01/19/21 03:40 Dimorphic RBCs Not Reportable 01/19/21 03:40 Polychromasia Not Reportable 01/19/21 03:40 Hypochromasia Not Reportable 01/19/21 03:40 Poikilocytosis Not Reportable 01/19/21 03:40 Anisocytosis 1+ 01/19/21 03:40 Microcytosis Not Reportable 01/19/21 03:40 Macrocytosis Not Reportable 01/19/21 03:40 Spherocytes Not Reportable 01/19/21 03:40 Pappenheimer Bodies Not Reportable 01/19/21 03:40 Sickle Cells Not Reportable 01/19/21 03:40 Target Cells Not Reportable 01/19/21 03:40 Tear Drop Cells Not Reportable 01/19/21 03:40 Ovalocytes Not Reportable 01/19/21 03:40 Helmet Cells Not Reportable 01/19/21 03:40 [place] Bodies Not Reportable 01/19/21 03:40 [place] Rings Not Reportable 01/19/21 03:40 [place] Cells Not Reportable 01/19/21 03:40 Bite Cells Not Reportable 01/19/21 03:40 Crenated Cell Not Reportable 01/19/21 03:40 Elliptocytes Not Reportable 01/19/21 03:40 Acanthocytes (Spur) Not Reportable 01/19/21 03:40 Rouleaux Not Reportable 01/19/21 03:40 Hemoglobin C Crystals Not Reportable 01/19/21 03:40 Schistocytes Not Reportable 01/19/21 03:40 Malaria parasites Not Reportable 01/19/21 03:40 Rishabh Bodies Not Reportable 01/19/21 03:40 Hem Pathologist Commnt No 01/19/21 03:40 PT 13.0 Sec. (12.2-14.9) 01/20/21 07:53 INR 0.92 (0.87-1.13) 01/20/21 07:53 APTT 99.7 Sec. (24.2-36.6) H* 01/19/21 10:48 Heparin Anti-Xa Level 0.58 U.I./ml (0.3-0.7) 01/19/21 19:39 Sodium 142 mmol/L (137-145) 01/20/21 07:53 Potassium 3.9 mmol/L (3.6-5.0) D 01/20/21 07:53 Chloride 103.1 mmol/L (98-107) 01/20/21 07:53 Carbon Dioxide 26 mmol/L (22-30) 01/20/21 07:53 Anion Gap 17 mmol/L 01/20/21 07:53 BUN 18 mg/dL (7-17) H 01/20/21 07:53 Creatinine 0.6 mg/dL (0.6-1.2) 01/20/21 07:53 Estimated GFR > 60 ml/min 01/20/21 07:53 BUN/Creatinine Ratio 30 % 01/20/21 07:53 Glucose 111 mg/dL (65-100) H 01/20/21 07:53 POC Glucose 132 mg/dL (70-105) H 01/19/21 17:16 Calcium 9.9 mg/dL (8.4-10.2) 01/20/21 07:53 Magnesium 2.00 mg/dL (1.7-2.3) 01/19/21 08:30 Total Creatine Kinase 5786 units/L (30-135) H 01/19/21 08:30 CK-MB (CK-2) 775.9 ng/mL (0.0-4.0) H 01/19/21 08:30 CK-MB (CK-2) Rel Index 13.4 (0-4) H 01/19/21 08:30 Troponin T 3.560 ng/mL (0.00-0.029) H* D 01/19/21 08:30 Triglycerides 148 mg/dL (2-149) 01/19/21 03:40 Cholesterol 302 mg/dL (50-199) H 01/19/21 03:40 LDL Cholesterol Direct 223 mg/dL (50-130) H 01/19/21 03:40 HDL Cholesterol 58 mg/dL (40-59) 01/19/21 03:40 Cholesterol/HDL Ratio 5.20 % 01/19/21 03:40 Coronavirus (PCR) Negative (Negative) 01/19/21 09:15 Blood Type A POSITIVE 01/19/21 03:40 Antibody Screen Negative 01/19/21 03:40 [place]/IV: Voiding Method Toilet Active Medications - Current Medications Current Medications: Generic Name Dose Route Start Last Admin Trade Name Freq PRN Reason Stop Dose Admin Acetaminophen 650 mg 01/19/21 04:23 Acetaminophen 325 Mg Tab PO Q6H PRN Pain, Mild (1-3) Al Hydrox/Mg Hydrox/Simethicone 30 ml 01/19/21 17:49 Alum-Mag Hydroxide-Simethicone [id number]/5ml Oral Liqd 30 Ml PO Q4H PRN Indigestion Aspirin 81 mg 01/19/21 10:00 01/20/21 09:24 Aspirin 81 Mg Tab Chew PO 81 mg QDAY RANDELL Administration Atorvastatin Calcium 80 mg 01/19/21 22:00 01/19/21 22:58 Atorvastatin 40 Mg Tab PO 80 mg QHS RANDELL Administration Clopidogrel Bisulfate 75 mg 01/21/21 10:00 Clopidogrel 75 Mg Tab PO QDAY RANDELL Hydromorphone HCl 1 mg 01/19/21 17:59 Hydromorphone 1 Mg/1 Ml Inj IV Q3H PRN Pain , Severe (7-10) Labetalol HCl 10 mg 01/19/21 17:44 01/19/21 17:15 Labetalol 20 Mg/4 Ml Inj IV 10 mg Q4H PRN Administration Blood Pressure Lisinopril 20 mg 01/20/21 10:00 01/20/21 09:25 Lisinopril 20 Mg Tab PO 20 mg QDAY RANDELL Administration Magnesium Hydroxide 30 ml 01/19/21 04:23 Magnesium Hydroxide (Mom) Oral Liqd Udc PO Q4H PRN Constipation Metoprolol Succinate 50 mg 01/19/21 10:00 01/20/21 09:24 Metoprolol Succinate Xl 50 Mg Tab PO 50 mg QDAY RANDELL Administration Morphine Sulfate 2 mg 01/19/21 04:23 Morphine 2 Mg/1 Ml Inj IV Q5MIN PRN Chest Pain Nitroglycerin 0.4 mg 01/19/21 04:23 Nitroglycerin 0.4 Mg Tab Subl SL Q5M PRN Chest Pain Ondansetron HCl 4 mg 01/19/21 17:52 01/19/21 22:23 Ondansetron 4 Mg/2 Ml Inj IV 4 mg Q3H PRN Administration Nausea And Vomiting Pantoprazole Sodium 40 mg 01/19/21 22:00 01/20/21 09:25 Pantoprazole 40 Mg Inj IV 40 mg BID RANDELL Administration Sodium Chloride 10 ml 01/19/21 10:00 01/20/21 09:25 Sodium Chloride 0.9% 10 Ml Flush Syringe IV Not Given BID RANDELL Sodium Chloride 10 ml 01/19/21 04:23 Sodium Chloride 0.9% 10 Ml Flush Syringe IV PRN PRN LINE FLUSH Tramadol HCl 50 mg 01/19/21 04:23 Tramadol 50 Mg Tab PO Q6H PRN Pain, Moderate (4-6)
--- NOTE | 2021-01-20 11:45 | Progress Note ---
Assessment and Plan - Patient Problems (1) Acute ST elevation myocardial infarction (STEMI) of anterior wall Current Visit: Yes Status: Acute Plan to address problem: Patient hospitalized with acute anterior wall STEMI, due to severe stenosis of the proximal LAD, treated successfully with primary angioplasty and deployment of a drug-eluting stent. The patient's angiograms were reviewed, she has moderate nonobstructive disease of the AV groove circumflex leading to a medium sized terminal branch, and a moderately severe lesion in the mid segment of a very small caliber less than 2 mm right coronary artery. The inferior left ventricular wall is also perfused by a larger, right ventricular branch originating from the proximal right coronary. We will continue guideline directed medical therapy; patient is stable for transfer to telemetry. Anticipate discharge tomorrow morning on lisinopril, metoprolol, aspirin, clopidogrel and atorvastatin. We will conservatively treat the small vessel disease of the right coronary artery and the nonocclusive disease of the AV groove circumflex. Subjective Date of service: 01/20/21 Interval history: Patient looks and feels better, sitting at her bedside in the ICU. No chest pain, reports that she feels great. On bus monitor she has a sinus rhythm at 88, systolic blood pressure 121. Right wrist cath site is well-healed with mild ecchymosis. Objective Vital Signs Temp Pulse Resp BP Pulse Ox 01/20/21 11:00 93 H 13 121/68 97 01/20/21 10:01 97 H 13 123/63 98 01/20/21 09:25 94 H 164/81 01/20/21 09:24 96 H 164/81 01/20/21 09:00 89 16 164/81 98 01/20/21 08:42 98.1 F 01/20/21 08:00 91 H 14 156/78 98 01/20/21 07:01 88 18 138/80 98 01/20/21 06:01 98 H 21 112/83 98 01/20/21 05:00 98 H 18 125/68 97 01/20/21 04:01 107 H 21 174/86 98 01/20/21 04:00 98.8 F 88 01/20/21 03:00 83 20 149/73 98 01/20/21 02:01 88 20 174/86 97 01/20/21 01:00 82 16 148/74 97 01/20/21 00:13 87 16 160/79 96 01/20/21 00:00 98.7 F 83 17 162/88 98 01/19/21 23:45 84 17 160/79 97 01/19/21 23:31 83 19 160/79 97 01/19/21 23:15 83 18 160/79 96 01/19/21 23:01 88 16 160/79 97 01/19/21 22:45 87 14 172/87 96 01/19/21 22:30 88 21 172/87 97 01/19/21 22:15 89 16 173/95 97 01/19/21 22:00 91 H 12 155/98 98 01/19/21 21:45 93 H 17 149/87 98 01/19/21 21:30 88 20 149/87 96 01/19/21 21:15 87 24 174/99 98 01/19/21 21:01 92 H 20 174/99 97 01/19/21 20:45 88 20 165/85 98 01/19/21 20:30 89 25 H 165/85 98 01/19/21 20:15 155/76 99 01/19/21 20:01 93 H 16 165/93 92 01/19/21 20:00 98.8 F 01/19/21 19:46 93 H 01/19/21 19:45 96 H 16 151/80 82 L 01/19/21 19:30 94 H 16 151/80 100 01/19/21 19:15 83 16 142/80 100 01/19/21 19:00 84 20 152/75 100 01/19/21 18:45 84 18 129/72 100 01/19/21 18:30 84 17 150/89 97 01/19/21 18:15 83 16 157/91 99 01/19/21 18:00 80 18 157/83 95 01/19/21 17:45 193/138 97 01/19/21 17:30 174/103 96 01/19/21 17:25 97.5 F L 01/19/21 17:23 179/102 100 01/19/21 17:15 87 179/102 01/19/21 17:11 93 H 174/100 98 01/19/21 17:01 90 76/42 92 01/19/21 16:51 91 H 76/42 96 01/19/21 16:41 83 99 01/19/21 16:30 84 147/94 98 01/19/21 16:20 88 147/94 01/19/21 16:10 89 145/69 99 01/19/21 16:00 88 145/69 98 01/19/21 15:50 87 175/88 96 01/19/21 15:40 92 H 153/90 100 01/19/21 15:30 88 153/90 100 01/19/21 15:20 87 173/77 98 01/19/21 15:10 91 H 155/77 95 01/19/21 15:00 90 155/77 100 01/19/21 14:50 90 144/59 99 01/19/21 14:40 86 144/59 99 01/19/21 14:30 82 16 144/59 99 01/19/21 14:20 161/80 98 01/19/21 14:10 178/83 99 01/19/21 14:00 178/83 97 01/19/21 13:50 164/80 98 01/19/21 13:40 163/76 99 01/19/21 13:30 82 12 163/76 99 01/19/21 13:20 82 12 164/80 98 01/19/21 13:14 97.9 F 01/19/21 13:10 82 13 161/81 99 01/19/21 13:00 85 22 161/81 100 01/19/21 12:50 83 23 159/87 98 01/19/21 12:40 82 19 151/72 99 01/19/21 12:30 86 22 151/72 98 01/19/21 12:20 83 12 153/80 98 01/19/21 12:10 88 26 H 132/75 97 01/19/21 12:00 16 132/75 99 01/19/21 11:50 83 19 132/75 100 01/19/21 11:40 82 18 145/92 100 - Physical Examination General: Appears Well, No Apparent Distress HEENT: Positive: Normocephaly Neck: Positive: neck supple, trachea midline Cardiac: Positive: Reg Rate and Rhythm Lungs: Positive: clear to auscultation Neuro: Positive: Grossly Intact Abdomen: Positive: Unremarkable Skin: Positive: Clear Extremities: Absent: edema - Labs and Meds Coagulation 01/19/21 01/20/21 Range/Units 10:48 07:53 PT 13.0 (12.2-14.9) Sec. INR 0.92 (0.87-1.13) APTT 99.7 H* (24.2-36.6) Sec. CBC 01/20/21 Range/Units 07:53 WBC 14.2 H (4.5-11.0) K/mm3 RBC 4.55 (3.65-5.03) M/mm3 Hgb 14.2 (10.1-14.3) gm/dl Hct 41.1 (30.3-42.9) % Plt Count 266 (140-440) K/mm3 Lymph # (Auto) 2.0 (1.2-5.4) K/mm3 [place] # (Auto) 1.1 H (0.0-0.8) K/mm3 Eos # (Auto) 0.0 (0.0-0.4) K/mm3 Baso # (Auto) 0.1 (0.0-0.1) K/mm3 Comprehensive Metabolic Panel 01/20/21 Range/Units 07:53 Sodium 142 (137-145) mmol/L Potassium 3.9 D (3.6-5.0) mmol/L Chloride 103.1 (98-107) mmol/L Carbon Dioxide 26 (22-30) mmol/L BUN 18 H (7-17) mg/dL Creatinine 0.6 (0.6-1.2) mg/dL Glucose 111 H (65-100) mg/dL Calcium 9.9 (8.4-10.2) mg/dL
--- NOTE | 2021-01-20 14:33 | Progress Note ---
Assessment and Plan Acute ST-elevation myocardial infarction Pulmonary hypertension Heart failure with reduced ejection fraction Obesity History of hypertension Hypokalemia Hyperlipidemia - continue to wean supplemental oxygen to keep O2 sats > 90% - prn bronchodilators (SUNG) with pulm hygiene per RT - continue secondary prevention re: B-blockers, lipid control - antiplatelet therapy per cardiology (on Brilinta) - continue to avoid nephrotoxins, renally dose all medications - continue mobility protocols to prevent pressure ulcers - PT/OT as tolerated - Wound care per RN/WCT - continue accuchecks with glycemic control per SSI for target blood glucose < 180 mg/dL - Smoking cessation strongly counseled at the bedside - home oxygen evaluation at discharge - prn analgesia per pain score - GI & VTE prophylaxis - Flu & pneumovax per protocol - Pulmonary out patient follow up for PFTs and optimization of respiratory status - continue other care per attending / other consultants ... re-evaluate in am & prn ... ok to transfer to telemetry Subjective Date of service: 01/20/21 Principal diagnosis: Acute STEMI; Pulmonary HTN; HFrEF; Obesity; HTN Interval history: Patient is seen today for: Acute STEMI; Pulmonary HTN; HFrEF; Obesity; HTN Seen and examined at bedside; 24hour events reviewed; nursing and respiratory care staff consulted; no adverse overnight events reported to me; resting peacefully in bed; N&V improved; denies acute chest pain or SOB Objective Vital Signs - 12hr 01/20/21 01/20/21 01/20/21 03:00 04:00 04:01 Temperature 98.8 F Pulse Rate 83 88 107 H Respiratory 20 21 Rate Blood Pressure 149/73 174/86 O2 Sat by Pulse 98 98 Oximetry 01/20/21 01/20/21 01/20/21 05:00 06:01 07:01 Temperature Pulse Rate 98 H 98 H 88 Respiratory 18 21 18 Rate Blood Pressure 125/68 112/83 138/80 O2 Sat by Pulse 97 98 98 Oximetry 01/20/21 01/20/21 01/20/21 08:00 08:42 09:00 Temperature 98.1 F Pulse Rate 91 H 89 Respiratory 14 16 Rate Blood Pressure 156/78 164/81 O2 Sat by Pulse 98 98 Oximetry 01/20/21 01/20/21 01/20/21 09:24 09:25 10:01 Temperature Pulse Rate 96 H 94 H 97 H Respiratory 13 Rate Blood Pressure 164/81 164/81 123/63 O2 Sat by Pulse 98 Oximetry 01/20/21 01/20/21 01/20/21 11:00 12:00 12:01 Temperature Pulse Rate 93 H 95 H 92 H Respiratory 13 14 18 Rate Blood Pressure 121/68 121/68 O2 Sat by Pulse 97 98 Oximetry 01/20/21 01/20/21 01/20/21 12:52 13:01 14:00 Temperature 97.8 F Pulse Rate 80 66 Respiratory 15 15 Rate Blood Pressure 108/87 144/78 O2 Sat by Pulse 98 99 Oximetry Constitutional: no acute distress Eyes: non-icteric ENT: oropharynx moist Neck: supple, no lymphadenopathy, no JVD Effort: normal Ascultation: Bilateral: clear, diminished breath sounds Percussion: Bilateral: not dull Cardiovascular: regular rate and rhythm Gastrointestinal: normoactive bowel sounds, soft, non-tender, non-distended Integumentary: normal Extremities: no cyanosis, no edema, pulses normal, no ischemia or petechiae Neurologic: non-focal exam, pupils equal and round, CN II-XII normal, motor strength normal and Psychiatric: mood appropriate, affect normal CBC and BMP: 01/20/21 07:53 01/20/21 07:53 ABG, PT/INR, D-dimer: PT/INR, D-dimer PT 13.0 Sec. (12.2-14.9) 01/20/21 07:53 INR 0.92 (0.87-1.13) 01/20/21 07:53 Abnormal lab findings: Abnormal Labs 01/19/21 01/19/21 01/19/21 03:40 03:40 03:40 WBC MCHC Lymph % (Auto) [place] % (Auto) Lymph # (Auto) [place] # (Auto) Seg Neutrophils % Lymphocytes % (Manual) 45.0 H Seg Neutrophils # PT INR 0.86 L APTT Potassium 2.8 L* BUN Creatinine 0.5 L Glucose 161 H POC Glucose Total Creatine Kinase 147 H CK-MB (CK-2) 4.7 H CK-MB (CK-2) Rel Index Troponin T 0.060 H Cholesterol 302 H LDL Cholesterol Direct 223 H 01/19/21 01/19/21 01/19/21 08:30 08:30 10:48 WBC 12.4 H MCHC 35 H Lymph % (Auto) 9.0 L [place] % (Auto) Lymph # (Auto) 1.1 L [place] # (Auto) Seg Neutrophils % 85.5 H Lymphocytes % (Manual) Seg Neutrophils # 10.6 H PT 16.9 H INR 1.31 H APTT 99.7 H* Potassium 3.2 L BUN Creatinine 0.5 L Glucose 157 H POC Glucose Total Creatine Kinase 5786 H CK-MB (CK-2) 775.9 H CK-MB (CK-2) Rel Index 13.4 H Troponin T 3.560 H* D Cholesterol LDL Cholesterol Direct 01/19/21 01/19/21 01/20/21 12:57 17:16 07:53 WBC 14.2 H MCHC 35 H Lymph % (Auto) [place] % (Auto) 7.5 H Lymph # (Auto) [place] # (Auto) 1.1 H Seg Neutrophils % 77.8 H Lymphocytes % (Manual) Seg Neutrophils # 11.1 H PT INR APTT Potassium BUN Creatinine Glucose POC Glucose 139 H 132 H Total Creatine Kinase CK-MB (CK-2) CK-MB (CK-2) Rel Index Troponin T Cholesterol LDL Cholesterol Direct 01/20/21 07:53 WBC MCHC Lymph % (Auto) [place] % (Auto) Lymph # (Auto) [place] # (Auto) Seg Neutrophils % Lymphocytes % (Manual) Seg Neutrophils # PT INR APTT Potassium BUN 18 H Creatinine Glucose 111 H POC Glucose Total Creatine Kinase CK-MB (CK-2) CK-MB (CK-2) Rel Index Troponin T Cholesterol LDL Cholesterol Direct Allied health notes reviewed: nursing
[2021-01-20] MEDS ORDERED: ONDANSETRON 4 MG/2 ML INJ IV PRN (15:00)
[2021-01-21 04:56] LABS: Hematocrit 39.3 % (30.3-42.9); Hemoglobin 13.5 gm/dl (10.1-14.3); Mean Corpuscular HGB Conc 34 % (30-34); Mean Corpuscular Volume 91 fl (79-97); Platelet Count 257 K/mm3 (140-440); Red Blood Count 4.32 M/mm3 (3.65-5.03); Red Cell Distribution Width 13.7 % (13.2-15.2)
[2021-01-21 05:12] LABS: Blood Urea Nitrogen 23 mg/dL (7-17); Calcium 9.3 mg/dL (8.4-10.2); Hemolysis Index 1
[2021-01-21 05:16] LABS: BUN/Creatinine Ratio 33
[2021-01-21 07:08] VITALS: BP 99/46
[2021-01-21] MEDS ORDERED: PANTOPRAZOLE 40 MG TAB PO SCH (07:30)
[2021-01-21] MEDS: METOPROLOL SUCCINATE XL 50 MG TAB PO SCH (09:54)
[2021-01-21] MEDS: LISINOPRIL 20 MG TAB PO SCH (09:54)
[2021-01-21] MEDS: ASPIRIN 81 MG TAB CHEW PO SCH (09:54)
--- NOTE | 2021-01-21 09:55 | Progress Note ---
Hospitalist Physical - Constitutional Vitals: Temp Pulse Resp BP Pulse Ox 98.0 F 72 18 99/46 95 01/21/21 06:56 01/21/21 06:56 01/21/21 06:56 01/21/21 06:56 01/21/21 06:56 General appearance: Present: no acute distress, well-nourished HEART Score - HEART Score EKG: Significant ST-depression Age: 45-65 Risk factors: 1-2 risk factors Troponin: Troponin T 3.560 ng/mL (0.00-0.029) H* D 01/19/21 08:30 Troponin: < normal limit Results - Labs CBC & Chem 7: 01/21/21 04:15 01/21/21 04:15 Labs: Laboratory Last Values WBC 9.7 K/mm3 (4.5-11.0) 01/21/21 04:15 RBC 4.32 M/mm3 (3.65-5.03) 01/21/21 04:15 Hgb 13.5 gm/dl (10.1-14.3) 01/21/21 04:15 Hct 39.3 % (30.3-42.9) 01/21/21 04:15 MCV 91 fl (79-97) 01/21/21 04:15 MCH 31 pg (28-32) 01/21/21 04:15 MCHC 34 % (30-34) 01/21/21 04:15 RDW 13.7 % (13.2-15.2) 01/21/21 04:15 Plt Count 257 K/mm3 (140-440) 01/21/21 04:15 Lymph % (Auto) 13.9 % (13.4-35.0) 01/20/21 07:53 Gilchrist % (Auto) 7.5 % (0.0-7.3) H 01/20/21 07:53 Eos % (Auto) 0.1 % (0.0-4.3) 01/20/21 07:53 Baso % (Auto) 0.7 % (0.0-1.8) 01/20/21 07:53 Lymph # (Auto) 2.0 K/mm3 (1.2-5.4) 01/20/21 07:53 Gilchrist # (Auto) 1.1 K/mm3 (0.0-0.8) H 01/20/21 07:53 Eos # (Auto) 0.0 K/mm3 (0.0-0.4) 01/20/21 07:53 Baso # (Auto) 0.1 K/mm3 (0.0-0.1) 01/20/21 07:53 Add Manual Diff Complete 01/19/21 03:40 Total Counted 100 01/19/21 03:40 Seg Neutrophils % 77.8 % (40.0-70.0) H 01/20/21 07:53 Seg Neuts % (Manual) 50.0 % (40.0-70.0) 01/19/21 03:40 Lymphocytes % (Manual) 45.0 % (13.4-35.0) H 01/19/21 03:40 Monocytes % (Manual) 4.0 % (0.0-7.3) 01/19/21 03:40 Eosinophils % (Manual) 1.0 % (0.0-4.3) 01/19/21 03:40 Nucleated RBC % Not Reportable 01/19/21 03:40 Seg Neutrophils # 11.1 K/mm3 (1.8-7.7) H 01/20/21 07:53 Seg Neutrophils # Man 5.4 K/mm3 (1.8-7.7) 01/19/21 03:40 Band Neutrophils # 0.0 K/mm3 01/19/21 03:40 Lymphocytes # (Manual) 4.8 K/mm3 (1.2-5.4) 01/19/21 03:40 Abs React Lymphs (Man) 0.0 K/mm3 01/19/21 03:40 Monocytes # (Manual) 0.4 K/mm3 (0.0-0.8) 01/19/21 03:40 Eosinophils # (Manual) 0.1 K/mm3 (0.0-0.4) 01/19/21 03:40 Basophils # (Manual) 0.0 K/mm3 (0.0-0.1) 01/19/21 03:40 Metamyelocytes # 0.0 K/mm3 01/19/21 03:40 Myelocytes # 0.0 K/mm3 01/19/21 03:40 Promyelocytes # 0.0 K/mm3 01/19/21 03:40 Blast Cells # 0.0 K/mm3 01/19/21 03:40 WBC Morphology Not Reportable 01/19/21 03:40 Hypersegmented Neuts Not Reportable 01/19/21 03:40 Hyposegmented Neuts Not Reportable 01/19/21 03:40 Hypogranular Neuts Not Reportable 01/19/21 03:40 Smudge Cells Not Reportable 01/19/21 03:40 Toxic Granulation Not Reportable 01/19/21 03:40 Toxic Vacuolation Not Reportable 01/19/21 03:40 Dohle Bodies Not Reportable 01/19/21 03:40 Pelger-Huet Anomaly Not Reportable 01/19/21 03:40 Gely Rods Not Reportable 01/19/21 03:40 Platelet Estimate Consistent w auto 01/19/21 03:40 Clumped Platelets Not Reportable 01/19/21 03:40 Plt Clumps, EDTA Not Reportable 01/19/21 03:40 Large Platelets Not Reportable 01/19/21 03:40 Giant Platelets Not Reportable 01/19/21 03:40 Platelet Satelliting Not Reportable 01/19/21 03:40 Plt Morphology Comment Not Reportable 01/19/21 03:40 RBC Morphology Not Reportable 01/19/21 03:40 Dimorphic RBCs Not Reportable 01/19/21 03:40 Polychromasia Not Reportable 01/19/21 03:40 Hypochromasia Not Reportable 01/19/21 03:40 Poikilocytosis Not Reportable 01/19/21 03:40 Anisocytosis 1+ 01/19/21 03:40 Microcytosis Not Reportable 01/19/21 03:40 Macrocytosis Not Reportable 01/19/21 03:40 Spherocytes Not Reportable 01/19/21 03:40 Pappenheimer Bodies Not Reportable 01/19/21 03:40 Sickle Cells Not Reportable 01/19/21 03:40 Target Cells Not Reportable 01/19/21 03:40 Tear Drop Cells Not Reportable 01/19/21 03:40 Ovalocytes Not Reportable 01/19/21 03:40 Helmet Cells Not Reportable 01/19/21 03:40 Dumont-Alex Bodies Not Reportable 01/19/21 03:40 [place] Rings Not Reportable 01/19/21 03:40 Srinath Cells Not Reportable 01/19/21 03:40 Bite Cells Not Reportable 01/19/21 03:40 Crenated Cell Not Reportable 01/19/21 03:40 Elliptocytes Not Reportable 01/19/21 03:40 Acanthocytes (Spur) Not Reportable 01/19/21 03:40 Rouleaux Not Reportable 01/19/21 03:40 Hemoglobin C Crystals Not Reportable 01/19/21 03:40 Schistocytes Not Reportable 01/19/21 03:40 Malaria parasites Not Reportable 01/19/21 03:40 Rishabh Bodies Not Reportable 01/19/21 03:40 Hem Pathologist Commnt No 01/19/21 03:40 PT 13.0 Sec. (12.2-14.9) 01/20/21 07:53 INR 0.92 (0.87-1.13) 01/20/21 07:53 APTT 99.7 Sec. (24.2-36.6) H* 01/19/21 10:48 Heparin Anti-Xa Level 0.58 U.I./ml (0.3-0.7) 01/19/21 19:39 Sodium 138 mmol/L (137-145) 01/21/21 04:15 Potassium 4.2 mmol/L (3.6-5.0) 01/21/21 04:15 Chloride 101.7 mmol/L (98-107) 01/21/21 04:15 Carbon Dioxide 25 mmol/L (22-30) 01/21/21 04:15 Anion Gap 16 mmol/L 01/21/21 04:15 BUN 23 mg/dL (7-17) H 01/21/21 04:15 Creatinine 0.7 mg/dL (0.6-1.2) 01/21/21 04:15 Estimated GFR > 60 ml/min 01/21/21 04:15 BUN/Creatinine Ratio 33 % 01/21/21 04:15 Glucose 117 mg/dL (65-100) H 01/21/21 04:15 POC Glucose 101 mg/dL (70-105) 01/20/21 12:47 Calcium 9.3 mg/dL (8.4-10.2) 01/21/21 04:15 Magnesium 2.00 mg/dL (1.7-2.3) 01/19/21 08:30 Total Creatine Kinase 5786 units/L (30-135) H 01/19/21 08:30 CK-MB (CK-2) 775.9 ng/mL (0.0-4.0) H 01/19/21 08:30 CK-MB (CK-2) Rel Index 13.4 (0-4) H 01/19/21 08:30 Troponin T 3.560 ng/mL (0.00-0.029) H* D 01/19/21 08:30 Triglycerides 148 mg/dL (2-149) 01/19/21 03:40 Cholesterol 302 mg/dL (50-199) H 01/19/21 03:40 LDL Cholesterol Direct 223 mg/dL (50-130) H 01/19/21 03:40 HDL Cholesterol 58 mg/dL (40-59) 01/19/21 03:40 Cholesterol/HDL Ratio 5.20 % 01/19/21 03:40 Coronavirus (PCR) Negative (Negative) 01/19/21 09:15 Blood Type A POSITIVE 01/19/21 03:40 Antibody Screen Negative 01/19/21 03:40 Bueno/IV: Voiding Method Toilet Active Medications - Current Medications Current Medications: Generic Name Dose Route Start Last Admin Trade Name Freq PRN Reason Stop Dose Admin Acetaminophen 650 mg 01/19/21 04:23 Acetaminophen 325 Mg Tab PO Q6H PRN Pain, Mild (1-3) Al Hydrox/Mg Hydrox/Simethicone 30 ml 01/19/21 17:49 Alum-Mag Hydroxide-Simethicone [id number]/5ml Oral Liqd 30 Ml PO Q4H PRN Indigestion Aspirin 81 mg 01/19/21 10:00 01/20/21 09:24 Aspirin 81 Mg Tab Chew PO 81 mg QDAY RANDELL Administration Atorvastatin Calcium 80 mg 01/19/21 22:00 01/20/21 21:10 Atorvastatin 40 Mg Tab PO 80 mg QHS RANDELL Administration Clopidogrel Bisulfate 75 mg 01/21/21 10:00 Clopidogrel 75 Mg Tab PO QDAY RANDELL Labetalol HCl 10 mg 01/19/21 17:44 01/19/21 17:15 Labetalol 20 Mg/4 Ml Inj IV 10 mg Q4H PRN Administration Blood Pressure Lisinopril 20 mg 01/20/21 10:00 01/20/21 09:25 Lisinopril 20 Mg Tab PO 20 mg QDAY RANDELL Administration Magnesium Hydroxide 30 ml 01/19/21 04:23 01/21/21 08:14 Magnesium Hydroxide (Mom) Oral Liqd Udc PO 30 ml Q4H PRN Administration Constipation Metoprolol Succinate 50 mg 01/19/21 10:00 01/20/21 09:24 Metoprolol Succinate Xl 50 Mg Tab PO 50 mg QDAY RANDELL Administration Morphine Sulfate 2 mg 01/19/21 04:23 Morphine 2 Mg/1 Ml Inj IV Q5MIN PRN Chest Pain Nitroglycerin 0.4 mg 01/19/21 04:23 Nitroglycerin 0.4 Mg Tab Subl SL Q5M PRN Chest Pain Ondansetron HCl 4 mg 01/20/21 15:00 Ondansetron 4 Mg/2 Ml Inj IV Q4H PRN Nausea And Vomiting Pantoprazole Sodium 40 mg 01/21/21 07:30 01/21/21 08:14 Pantoprazole 40 Mg Tab PO 40 mg QDAC RANDELL Administration Sodium Chloride 10 ml 01/19/21 10:00 01/20/21 21:11 Sodium Chloride 0.9% 10 Ml Flush Syringe IV 10 ml BID RANDELL Administration Sodium Chloride 10 ml 01/19/21 04:23 Sodium Chloride 0.9% 10 Ml Flush Syringe IV PRN PRN LINE FLUSH Tramadol HCl 50 mg 01/19/21 04:23 Tramadol 50 Mg Tab PO Q6H PRN Pain, Moderate (4-6) Nutrition/Malnutrition Assess - Dietary Evaluation Nutrition/Malnutrition Findings: Nutrition Notes Start: 01/20/21 11:52 Freq: Status: Active Protocol: Document 01/20/21 11:52 (Rec: 01/20/21 11:56 [email or web address]) Nutrition Notes Need for Assessment generated from: MD Order,Education Initial or Follow up Brief Note Current Diagnosis Coronary Artery Disease, Hypertension,Heart Failure Other Pertinent Diagnosis ID Current Diet NPO Subjective/Other Information MD consult for diet education. Talked with pt about healthy fats, low sodium, and high fiber foods. Pt has some understanding about how to eat healthy but tends to get Burger Yu[employer] or Popeyes while at work 3x week. Encouraged pt to choose healthier choices when she eats out (less fried foods, fruits/vegetables with meal), bring her own lunch, and stop using high salt seasonings and products. #1 Nutrition Diagnosis Food and nutrition-related knowledge deficit Etiology lack of proper prior diet education As Evidenced by Signs and Symptoms pt had questions about heart healthy diet Nutrition Intervention Teaching Recipient Patient Learning Readiness Good Teaching Methods Discussion,Handout Response to Teaching Verbalize understanding Education Handouts Provided Heart Healthy Nutrition Therapy Barriers to Learning No Barriers RD phone number provided Yes Patient aware of follow up options Yes Revisit per MD consult or patient Sign Off request:
[2021-01-21] MEDS ORDERED: CLOPIDOGREL 75 MG TAB PO SCH (10:00)
--- NOTE | 2021-01-21 10:16 | Progress Note ---
Assessment and Plan - Patient Problems (1) Acute ST elevation myocardial infarction (STEMI) of anterior wall Current Visit: Yes Status: Acute Plan to address problem: Acute anterior wall STEMI s/p PCI of the proximal LAD using drug-eluting stent. On plavix and aspirin. Medical management recommended for small vessel disease of the right coronary artery and the nonocclusive disease of the AV groove circumflex. LVEF 30-35%. Continue guideline directed medical therapy for coronary artery disease and ischemic cardiomyopathy. Stable cardiac srivastava for discharge. Outpatient cardiac follow up within 5-7 days of discharge. Subjective Date of service: 01/21/21 Principal diagnosis: Acute STEMI; Pulmonary HTN; HFrEF; Obesity; HTN Interval history: Patient appears well. Denies chest pain and denies shortness of breath. Objective Vital Signs Temp Pulse Resp BP Pulse Ox 01/21/21 06:56 98.0 F 72 18 99/46 95 01/21/21 05:21 98.1 F 81 20 110/48 92 01/21/21 04:27 81 01/21/21 00:00 20 01/20/21 23:31 98.3 F 84 20 128/63 96 01/20/21 20:00 81 01/20/21 18:43 98.8 F 87 20 128/71 98 01/20/21 16:51 90 16 143/74 99 01/20/21 16:41 95 H 17 143/74 94 01/20/21 16:31 83 17 143/74 99 01/20/21 16:21 76 14 143/74 93 01/20/21 16:11 79 23 143/74 87 01/20/21 16:00 83 22 143/74 97 01/20/21 15:00 79 17 138/72 95 01/20/21 14:00 66 15 144/78 99 01/20/21 13:01 80 15 108/87 98 01/20/21 12:52 97.8 F 01/20/21 12:01 92 H 18 121/68 98 01/20/21 12:00 95 H 14 01/20/21 11:00 93 H 13 121/68 97 - Physical Examination General: No Apparent Distress HEENT: Positive: PERRL Neck: Positive: trachea midline Cardiac: Positive: Reg Rate and Rhythm Lungs: Positive: Normal Breath Sounds Neuro: Positive: Grossly Intact Extremities: Absent: edema - Labs and Meds CBC 01/21/21 Range/Units 04:15 WBC 9.7 (4.5-11.0) K/mm3 RBC 4.32 (3.65-5.03) M/mm3 Hgb 13.5 (10.1-14.3) gm/dl Hct 39.3 (30.3-42.9) % Plt Count 257 (140-440) K/mm3 Comprehensive Metabolic Panel 01/21/21 Range/Units 04:15 Sodium 138 (137-145) mmol/L Potassium 4.2 (3.6-5.0) mmol/L Chloride 101.7 (98-107) mmol/L Carbon Dioxide 25 (22-30) mmol/L BUN 23 H (7-17) mg/dL Creatinine 0.7 (0.6-1.2) mg/dL Glucose 117 H (65-100) mg/dL Calcium 9.3 (8.4-10.2) mg/dL - Allied health notes Allied health notes reviewed: nursing
--- NOTE | 2021-01-21 11:03 | Discharge Summary ---
Providers - Providers Date of Admission: 01/19/21 04:23 Date of discharge: 01/21/21 Attending physician: ADRY KAUR 01/19/21 Consult to Cardiac Rehabilitation [CONS] Routine Reason For Exam: Phase I 01/19/21 04:23 Consult to Cardiology [CONS] Routine Consulting Provider: MIRANDA IRENE Reason For Exam: chest pain Consult to Dietitian/Nutrition [CONS] Routine Physician Instructions: Reason For Exam: Reason for Consult: Diet education 01/19/21 05:49 Consult to Physician [CONS] Urgent Comment: Consulting Provider: CARLA KNOTT Physician Instructions: Reason For Exam: STEMI 01/20/21 09:23 Consult to Dietitian/Nutrition [CONS] Routine Physician Instructions: requesting information on heart healthy diet Reason For Exam: Reason for Consult: Diet education Primary care physician: FISH CAKE MAKER Hospitalization Reason for admission: ST elevation ME Condition: Stable Pertinent studies: Chest x-ray; no acute abnormality Echo; LVEF 30-35%. Procedures: Acute anterior wall STEMI; s/p PCI of the proximal LAD using drug-eluting stent. On plavix and aspirin. Medical management recommended for small vessel disease of the right coronary artery and the nonocclusive disease of the AV groove circumflex. 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 -Continue cardioprotective regimen Leukocytosis -Trend CBC Obesity -Need to increase in physical activity and dietary changes counseling provided -Nutrition consult Hypertension -Antihypertensive regimen with KAYE inhibitor's and beta-bernie -Titrate as needed -Blood pressure pressure monitoring per protocol -As needed antihypertensive Hyperlipidemia -Statin therapy Disposition: DC-01 TO HOME OR SELFCARE Final Discharge Diagnosis (Prints w/discharge instructions): Acute anterior wall STEMI. s/p PCI of the proximal LAD using drug-eluting stent. Small vessel disease right coronary artery. Ischemic cardiomyopathy. Acute systolic congestive heart failure EF 30%. Hypertension. Dyslipidemia. Leukocytosis Time spent for discharge: 35 min Core Measure Documentation - Palliative Care Palliative Care/ Comfort Measures: Not Applicable - Core Measures Any of the following diagnoses?: acute ME - Acute ME Discharge Requirements Aspirin at discharge: Yes KAYE/ARB for LVSD if EF <40%: Yes Beta bernie at discharge: Yes Statin for LDL = or >100 mg/dl on DC: Yes - Heart Failure Discharge Requirements KAYE/ARB for LVSD if EF <40%: Yes Beta bernie at discharge: Yes Exam - Constitutional Vitals: Temp Pulse Resp BP Pulse Ox 98.0 F 72 18 99/46 95 01/21/21 06:56 01/21/21 06:56 01/21/21 06:56 01/21/21 06:56 01/21/21 06:56 General appearance: Present: no acute distress, well-nourished - EENT Eyes: Present: PERRL, EOM intact - Neck Neck: Present: supple, normal ROM - Respiratory Respiratory effort: normal Respiratory: bilateral: diminished, negative: rales, rhonchi, wheezing - Cardiovascular Rhythm: regular Heart Sounds: Present: S1 & S2 - Extremities Extremities: no ischemia, No edema - Abdominal General gastrointestinal: Present: soft, non-tender, non-distended, normal bowel sounds - Integumentary Integumentary: Present: clear, warm - Musculoskeletal Musculoskeletal: strength equal bilaterally, generalized weakness - Psychiatric Psychiatric: appropriate mood/affect, cooperative - Neurologic Neurologic: moves all extremities Plan Activity: advance as tolerated, fall precautions Diet: low fat, low salt, other (Cardiac diet) Additional Instructions: Strongly advised to comply with medications, diet, follow-up visits per schedule. If you have worsening symptoms contact MD or go to emergency room Follow up with: PRIMARY MD ELI [Primary Care Provider] - 7 Days ASHVIN FERNANDEZ MD [Staff Physician] - 7 Days Prescriptions: Aspirin [Aspirin BABY CHEW TAB] 81 mg PO QDAY #30 tab.chew AtorvaSTATin [Lipitor] 80 mg PO QHS #30 tab Metoprolol Xl [Metoprolol SUCCINATE ER TAB] 50 mg PO QDAY #30 tablet Nitroglycerin [Nitrostat] 0.4 mg SL Q5M PRN #20 tablet PRN Reason: Chest Pain Clopidogrel [Plavix] 75 mg PO QDAY #30 tablet Pantoprazole [Protonix TAB] 20 mg PO DAILY #14 tablet. traMADoL [Ultram 50 MG tab] 50 mg PO Q6H PRN #20 tablet PRN Reason: Pain, Moderate (4-6) lisinopriL [Zestril TAB] 20 mg PO QDAY #30 tablet
--- NOTE | 2021-01-23 12:57 | Electrocardiograph Report ---
[facility] Test Date: 2021-01-19 Test Time: 03:28:48 Pat Name: SALINAS LANDAVERDE Department: Room: A454 Gender: F Front Office Medical Assistant: MADYSON : 1965 Requested By: MINH LANDRY Order Number: [id number] Reading MD: Chioma White Measurements Intervals [place] Rate: 70 P: 142 VA: 150 QRS: 137 QRSD: 95 T: -30 QT: 405 QTc: 439 Interpretive Statements Sinus atrial rhythm Probable left atrial enlargement Anterolateral infarct, acute No previous ECG available for comparison Electronically Signed On 01-23-2021 12:57:02 EDT by Chioma White
--- NOTE | 2021-01-23 12:59 | Electrocardiograph Report ---
[facility] Test Date: 2021-01-19 Test Time: 08:57:31 Pat Name: SALINAS LANDAVERDE Department: Room: A454 Gender: F Soils Engineer: VIKI : 1965 Requested By: MINH LANDRY Order Number: [id number] Reading MD: Chioma White Measurements Intervals [place] Rate: 80 P: 71 ND: 134 QRS: 73 QRSD: 96 T: 85 QT: 440 QTc: 509 Interpretive Statements Sinus rhythm Anterolateral infarct in evolution No previous ECG available for comparison Electronically Signed On 01-23-2021 12:59:24 EDT by Chioma White
== END 2021-01-21 16:59 | disposition home or self-care (01) | DRG 246 ==
LOC: ED 03:26 → CC1 04:23 → 4A 01-20 17:06
PROVIDERS: ADMIT Internal Medicine Geriatric Medicine; ATTEND Internal Medicine
PROC: 4A023N7 Measurement of Cardiac Sampling and Pressure, Left Heart, Percutaneous Approach (ICD-10-PCS; principal; 2021-01-19)
PROC: 027034Z Dilation of Coronary Artery, One Artery with Drug-eluting Intraluminal Device, Percutaneous Approach (ICD-10-PCS; 2021-01-19)
PROC: B2111ZZ Fluoroscopy of Multiple Coronary Arteries using Low Osmolar Contrast (ICD-10-PCS; 2021-01-19)
PROC: B2151ZZ Fluoroscopy of Left Heart using Low Osmolar Contrast (ICD-10-PCS; 2021-01-19)
DX: I21.09 ST elevation (STEMI) myocardial infarction involving other coronary artery of anterior wall (principal); I50.21 Acute systolic (congestive) heart failure; E78.5 Hyperlipidemia, unspecified; I11.0 Hypertensive heart disease with heart failure; E66.9 Obesity, unspecified; E87.6 Hypokalemia; I27.20 Pulmonary hypertension, unspecified; I25.10 Atherosclerotic heart disease of native coronary artery without angina pectoris; D72.829 Elevated white blood cell count, unspecified; Z79.899 Other long term (current) drug therapy; Z79.82 Long term (current) use of aspirin; Z79.891 Long term (current) use of opiate analgesic; Z79.01 Long term (current) use of anticoagulants
CPT/HCPCS: 36415; 71045; 80048; 80061; 82550; 82553; 82962; 83735; 84484; 85007; 85025; 85027; 85520; 85610; 85730; 86850; 86900; 86901; 92941; 93005; 93306; 93458; 96374; 96375; G0378; C1725; C1769; C1874; C1887; C1894; C9113; C9606; J0171; J0461; J0583; J1644; J1940; J2001; J2250; J2270; J2370; J2405; J3010; J3246; J3480; J7030; Q9967; U0003